=== PATIENT | male | born 1965 | race Caucasian/White ===

== ENCOUNTER → 2018-01-02 | Outpatient (CLI) | payer OTHER ==
[~2018-01-02] MED LIST: ACET-1256 PO; ALPH200C2; AMT10; ASCO100T4 PO; CLBCR15 EXT; DOXY1TAB6 PO; FLUO10CA48 PO; GABA-112 PO; IBUP-103 PO; LACTCHW3 PO; LORA-741 PO; MISC1CAP60 PO; SENN-61 PO
--- NOTE | 2018-01-02 22:37 | DIAGNOSTIC IMAGING REPORT ---
BONE SCAN 3 PHASE LIMITED CLINICAL HISTORY: 52 years-old Male presenting with CRPS LLE. TECHNIQUE: Following the IV administration of 26.5 mCi of technetium 99m MDP, three-phase bone scan of the feet was performed. Anterior flow images as well as anterior and posterior blood pool phase images were acquired. Bone phase imaging of lower extremities was performed at three hours in multiple obliquities. COMPARISON: None. FINDINGS: On initial flow imaging, relatively less radiotracer activity within the vasculature of the left foot. This is evident on both anterior and posterior views. On subsequent blood pool phase imaging, relatively less radiotracer within the left foot in comparison to the hindfoot and midfoot on the right. The relative hyperemia in the right foot is diffuse. On bone phase imaging, minimal focal radiotracer activity in the medial compartment of the left knee joint likely degenerative in etiology. Focal radiotracer activity in the inferior calcanei bilaterally. IMPRESSION: 1. Relatively less hyperemia in the left foot on flow imaging and blood pool phase would not be consistent with complex regional pain syndrome in the left lower extremity. 2. Focal radiotracer activity on delayed phase in the inferior calcanei may suggest plantar fasciitis. Correlate clinically. Electronically signed by: Ramesh Martinez M.D. 01/02/2018 10:36 PM Dictated Date/Time: 01/02/2018 10:07 PM
== END | disposition home or self-care (01) ==
LOC: C.NUCL 16:22
PROVIDERS: ATTEND Physician Assistant
DX: G90.522 Complex regional pain syndrome I of left lower limb (principal)

== ENCOUNTER 2021-07-24 09:12 | Inpatient (IN) ==
[2021-07-24] MEDS ORDERED: dexAMETHasone**PF** 10 MG/ML VIAL IV ONE (09:32)
[2021-07-24] MEDS ORDERED: ALBUT/IPRATROP 3MG/0.5MG NEB 3 ML VIAL INH STA (09:32)
[2021-07-24] MEDS ORDERED: SODIUM CHLORIDE 0.9% 1000ML 500 ML IV ONE (09:35)
--- NOTE | 2021-07-24 09:42 | Emergency Department Note ---
Impression & Plan Hypoxia, Pneumonia, COVID-19, SOB (shortness of breath) ED Provider Note NAME: JUSTEN JOHNS AGE: 55 SEX: M : 1965 ARRIVES VIA: Ambulance INFORMANT: [Patient] ED PROVIDER(S): [[facility] MD] CHIEF COMPLAINT: Short of breath HISTORY OF PRESENT ILLNESS: The patient is a 55-year-old male who presents to the ER with shortness of breath. He has been sick for about 10 days with flulike symptoms. He has had a fever, initially some diarrhea which has now subsided. He has had a cough. Lately, he has been more short of breath. His taste and smell is intact. He javan es any body aches. He has a home pulse ox meter and his values have been in the mid 80s. The patient did test positive for COVID-19 as an outpatient He is not vaccinated for COVID-19 or influenza. He was referred to the ER by his doctors office because of his low oxygen level. REVIEW OF SYSTEMS: See HPI for pertinent positives and negatives. A total of ten systems were reviewed and were otherwise negative. PMHx/PSHx: See Below SOCIAL HISTORY: See Below. PHYSICAL EXAM: GENERAL: Patient is in no acute distress. HEENT: No acute trauma, normocephalic atraumatic, mucous membranes moist, no nasal congestion, no scleral icterus. NECK: No stridor, no adenopathy, no meningismus, trachea is midline. LUNGS: Moist cough noted. Crackles at both lung bases. Mildly increased respiratory rate but no respiratory distress. HEART: Mildly tachycardic, regular rhythm, no murmurs. ABDOMEN: Soft, nontender, bowel sounds positive, no hernias, no peritonitis. EXTREMITIES: No cyanosis or edema, full range of motion of all the joints without pain or difficulty, no signs for acute trauma. 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 He is awake and alert, no speech slur. SKIN: No rash, no jaundice, no diaphoresis. DIFFERENTIAL DIAGNOSIS: Reactive airway disease, pneumonia, pneumothorax, COVID-19, influenza, COPD, CHF, infection, cardiac ischemia, pulmonary embolism, bronchitis, musculoskeletal, gastrointestinal, as well as other pathologies. EMERGENCY DEPARTMENT COURSE/PROCEDURES: ECG: Indication was shortness of breath. The ECG shows a normal sinus rhythm with a rate of 97. There is no ST elevation. No PVCs. There is an old inferior infarct. The QTc is 477. Continuous Cardiac Monitoring: An order was placed for continuous cardiac monitoring. The monitor shows a rate of 86 with normal sinus rhythm. Critical Care Note: I have personally spent 47 minutes of critical care time in the direct management of this patient. This includes bedside care, interpretation of diagnostic studies, and testing, discussion with consultants, patient, and family members, and other required patient management activities. This 47 minutes is in excess of all separately billable procedures. MEDICAL DECISION MAKING: There is no leukocytosis or concerning anemia. There is a normal platelet count. No coagulopathy. No significant electrolyte abnormality or kidney failure. No lactic acid elevation. No liver enzyme elevation. Procalcitonin level was not elevated. ECG shows a sinus rhythm, no acute ischemia. Cardiac enzyme testing x1 is not consistent with acute cardiac injury. Covid testing returned positive. Influenza and RSV testing returned negative. Chest film does show a bilateral pneumonia consistent with a viral process. On exam, the patient was hypoxic and required O2 supplementation. Patient received a 500 cc saline bolus. He was given IV Decadron and a DuoNeb. The patient has Covid pneumonia. This has led to shortness of breath and hypoxia. Admission/observation is warranted. I spoke with the patient and case management. The on-call hospitalist was consulted. Past Med/Surg History Medical History Acoustic neuroma Depression Social History Smoking Status: Former smoker Tobacco Type: Cigarettes Feels Safe at Home: Yes Allergies Allergies Allergy/AdvReac Type Severity Reaction Status Date / Time No Known Allergies Allergy Unverified 07/24/21 10:47 Home Meds Home Medications Medication Instructions Recorded Confirmed acetaminophen 325 mg tablet 500 mg PO PRN #0 tab 03/03/12 07/24/21 (Tylenol) ibuprofen 200 mg tablet 400 mg PO Q6H PRN #0 tab 03/08/12 07/24/21 ascorbic acid (vitamin C) 100 mg 100 mg PO DAILY #0 12/15/15 07/24/21 tablet lorazepam 1 mg tablet 0 mg PO TID PRN #0 tab 12/15/15 07/24/21 alpha lipoic acid 50 mg capsule 0 mg PO DAILY #0 12/23/17 07/24/21 CBD Oil 0 applic TOPICAL DAILY PRN #0 01/20/18 07/24/21 clonidine HCl 0.1 mg tablet 0.1 mg PO HS PRN 07/24/21 07/24/21 duloxetine 30 mg capsule,delayed 30 mg PO DAILY 07/24/21 07/24/21 release hydrochlorothiazide 12.5 mg capsule 12.5 mg PO DAILY 07/24/21 07/24/21 lisinopril 20 mg tablet 20 mg PO DAILY 07/24/21 07/24/21 pregabalin 200 mg capsule 200 mg PO BID 07/24/21 07/24/21 Results & Data (ED) Vital Signs Vital Signs - 24 hr 07/24/21 09:20 07/24/21 09:35 07/24/21 09:36 Temperature 37.3 C Temperature Source Oral Pulse Rate 100 H Pulse Rate [Right Finger] Respiratory Rate 24 Respiratory Effort / Characteristics Non-Labored Non-Labored Spontaneous Respiratory Depth Normal Normal Respiratory Pattern Regular Blood Pressure 148/90 H Blood Pressure [Left Arm] Blood Pressure Mean 109 Blood Pressure Mean [Left Arm] Pulse Oximetry 95 89 L Oxygen Delivery Method Nasal Cannula Nasal Cannula Nasal Cannula Oxygen Flow Rate 2 2 2 Sepsis Recent Fever Within 48 Hours No Sepsis New/Unexplained Change in Mental Status N/A Sepsis Action Taken by Nursing No Action Required Pulse Oximetry Post Tiitration 95 07/24/21 10:41 07/24/21 10:43 Temperature Temperature Source Pulse Rate Pulse Rate [Right Finger] 86 Respiratory Rate 24 24 Respiratory Effort / Characteristics Non-Labored Respiratory Depth Respiratory Pattern Blood Pressure Blood Pressure [Left Arm] 134/93 Blood Pressure Mean Blood Pressure Mean [Left Arm] 106 Pulse Oximetry 94 94 Oxygen Delivery Method Nasal Cannula Nasal Cannula Oxygen Flow Rate 2 2 Sepsis Recent Fever Within 48 Hours Sepsis New/Unexplained Change in Mental Status Sepsis Action Taken by Nursing Pulse Oximetry Post Tiitration Home Medications Current Medication List: was personally reviewed by me Laboratory Data Attestation: I reviewed the patient's lab results. Result diagrams: 07/24/21 09:32 07/24/21 09:32 Lab Results 07/24/21 07/24/21 07/24/21 Range/Units 09:32 09:32 09:32 WBC 9.16 (4.8-10.8) K/uL RBC 5.05 (4.7-6.1) M/uL Hgb 15.9 (14.0-18.0) g/dL Hct 47.2 (42-52) % MCV 93.5 (80-100) fL MCH 31.5 (25-34) pg MCHC 33.7 (32-36) g/dL RDW Std Deviation 45.1 (36.4-46.3) fL RDW Coeff of Hao 13.2 (11.5-14.5) % Plt Count 387 (130-400) K/uL MPV 10.3 (7.4-10.4) fL Immature Gran % (Auto) 0.2 % Neut % (Auto) 81.9 % Lymph % (Auto) 12.2 % [place] % (Auto) 5.0 % Eos % (Auto) 0.5 % Baso % (Auto) 0.2 % Neut # (Auto) 7.49 H (1.4-6.5) K/uL Lymph # (Auto) 1.12 L (1.2-3.4) K/uL [place] # (Auto) 0.46 (0.11-0.59) K/uL Eos # (Auto) 0.05 (0-0.5) K/uL Baso # (Auto) 0.02 (0-0.2) K/uL Immature Gran # (Auto) 0.02 (0.00-0.02) K/uL PT 10.1 (9.0-12.0) Seconds INR 1.0 (0.9-1.1) APTT 26.2 (21.0-31.0) Seconds PTT Ratio 1.0 Sodium 139 (136-145) mmol/L Potassium 3.9 (3.5-5.1) mmol/L Chloride 104 (98-107) mmol/L Carbon Dioxide 27 (21-32) mmol/L Anion Gap 8.0 (3-11) BUN 11 (7-18) mg/dl Creatinine 0.91 (0.6-1.4) mg/dl Est Cr Clr Drug Dosing 94.7 ml/min Est GFR ( Amer) 109.6 ml/min Est GFR (Non-Af Amer) 94.5 ml/min BUN/Creatinine Ratio 12.5 (10-20) Glucose 115 H (70-99) mg/dl Lactate (0.4-2.0) mmol/L Calcium 9.0 (8.5-10.1) mg/dl Magnesium 2.4 (1.8-2.4) mg/dl Total Bilirubin 0.6 (0.2-1) mg/dl AST 29 (15-37) U/L ALT 68 (12-78) U/L Alkaline Phosphatase 80 (45-117) U/L Troponin I < 0.015 (0-0.045) ng/ml C-Reactive Protein 6.28 H (0-0.29) mg/dl Total Protein 7.6 (6.4-8.2) gm/dl Albumin 3.0 L (3.4-5.0) gm/dl Globulin 4.6 H (2.5-4.0) gm/dl Albumin/Globulin Ratio 0.6 L (0.9-2) Procalcitonin SARS-CoV-2 (PCR) (Negative) Influenza Type A (PCR) (Neg) Influenza Type B (PCR) (Neg) RSV (RT-PCR) (Neg) 07/24/21 07/24/21 07/24/21 Range/Units 09:55 10:38 10:38 WBC (4.8-10.8) K/uL RBC (4.7-6.1) M/uL Hgb (14.0-18.0) g/dL Hct (42-52) % MCV (80-100) fL MCH (25-34) pg MCHC (32-36) g/dL RDW Std Deviation (36.4-46.3) fL RDW Coeff of Hao (11.5-14.5) % Plt Count (130-400) K/uL MPV (7.4-10.4) fL Immature Gran % (Auto) % Neut % (Auto) % Lymph % (Auto) % [place] % (Auto) % Eos % (Auto) % Baso % (Auto) % Neut # (Auto) (1.4-6.5) K/uL Lymph # (Auto) (1.2-3.4) K/uL [place] # (Auto) (0.11-0.59) K/uL Eos # (Auto) (0-0.5) K/uL Baso # (Auto) (0-0.2) K/uL Immature Gran # (Auto) (0.00-0.02) K/uL PT (9.0-12.0) Seconds INR (0.9-1.1) APTT (21.0-31.0) Seconds PTT Ratio Sodium (136-145) mmol/L Potassium (3.5-5.1) mmol/L Chloride (98-107) mmol/L Carbon Dioxide (21-32) mmol/L Anion Gap (3-11) BUN (7-18) mg/dl Creatinine (0.6-1.4) mg/dl Est Cr Clr Drug Dosing ml/min Est GFR ( Amer) ml/min Est GFR (Non-Af Amer) ml/min BUN/Creatinine Ratio (10-20) Glucose (70-99) mg/dl Lactate 1.3 (0.4-2.0) mmol/L Calcium (8.5-10.1) mg/dl Magnesium (1.8-2.4) mg/dl Total Bilirubin (0.2-1) mg/dl AST (15-37) U/L ALT (12-78) U/L Alkaline Phosphatase (45-117) U/L Troponin I (0-0.045) ng/ml C-Reactive Protein (0-0.29) mg/dl Total Protein (6.4-8.2) gm/dl Albumin (3.4-5.0) gm/dl Globulin (2.5-4.0) gm/dl Albumin/Globulin Ratio (0.9-2) Procalcitonin Cancelled SARS-CoV-2 (PCR) POSITIVE A* (Negative) Influenza Type A (PCR) Negative (Neg) Influenza Type B (PCR) Negative (Neg) RSV (RT-PCR) Negative (Neg) 07/24/21 Range/Units 11:43 WBC (4.8-10.8) K/uL RBC (4.7-6.1) M/uL Hgb (14.0-18.0) g/dL Hct (42-52) % MCV (80-100) fL MCH (25-34) pg MCHC (32-36) g/dL RDW Std Deviation (36.4-46.3) fL RDW Coeff of Hao (11.5-14.5) % Plt Count (130-400) K/uL MPV (7.4-10.4) fL Immature Gran % (Auto) % Neut % (Auto) % Lymph % (Auto) % [place] % (Auto) % Eos % (Auto) % Baso % (Auto) % Neut # (Auto) (1.4-6.5) K/uL Lymph # (Auto) (1.2-3.4) K/uL [place] # (Auto) (0.11-0.59) K/uL Eos # (Auto) (0-0.5) K/uL Baso # (Auto) (0-0.2) K/uL Immature Gran # (Auto) (0.00-0.02) K/uL PT (9.0-12.0) Seconds INR (0.9-1.1) APTT (21.0-31.0) Seconds PTT Ratio Sodium (136-145) mmol/L Potassium (3.5-5.1) mmol/L Chloride (98-107) mmol/L Carbon Dioxide (21-32) mmol/L Anion Gap (3-11) BUN (7-18) mg/dl Creatinine (0.6-1.4) mg/dl Est Cr Clr Drug Dosing ml/min Est GFR ( Amer) ml/min Est GFR (Non-Af Amer) ml/min BUN/Creatinine Ratio (10-20) Glucose (70-99) mg/dl Lactate (0.4-2.0) mmol/L Calcium (8.5-10.1) mg/dl Magnesium (1.8-2.4) mg/dl Total Bilirubin (0.2-1) mg/dl AST (15-37) U/L ALT (12-78) U/L Alkaline Phosphatase (45-117) U/L Troponin I (0-0.045) ng/ml C-Reactive Protein (0-0.29) mg/dl Total Protein (6.4-8.2) gm/dl Albumin (3.4-5.0) gm/dl Globulin (2.5-4.0) gm/dl Albumin/Globulin Ratio (0.9-2) Procalcitonin 0.08 SARS-CoV-2 (PCR) (Negative) Influenza Type A (PCR) (Neg) Influenza Type B (PCR) (Neg) RSV (RT-PCR) (Neg) Administered Medications Discontinued Medications Albuterol (Albut/Ipratrop 3mg/0.5mg Neb 3 Ml Vial) 3 ml INH NOW STA Stop: 07/24/21 09:33 Last Admin: 07/24/21 10:22 Dose: 3 ml Documented by: [id number] Dexamethasone Sodium Phosphate (DexamethasonePf 10 Mg/Ml Vial) 6 mg IV NOW ONE Stop: 07/24/21 09:33 Last Admin: 07/24/21 10:22 Dose: 6 mg Documented by: [id number] Sodium Chloride (Nss 1000ml) 500 mls @ 999 mls/hr IV .Q31M ONE Stop: 07/24/21 10:05 Last Infusion: 07/24/21 11:14 Dose: 0 mls/hr Documented by: [id number] Admin: 07/24/21 10:14 Dose: 999 mls/hr Documented by: [id number] Remdesivir 200 mg/ Sodium (Chloride) 250 mls @ 125 mls/hr IV ONE STA; Protocol Stop: 07/24/21 14:50 Last Admin: 07/24/21 13:34 Dose: 125 mls/hr Documented by: [id number] Imaging Data Radiologist's Impression: Chest X-Ray 07/24/21 09:32 XR chest 1V portable CLINICAL HISTORY: Shortness of breath. COMPARISON STUDY: No previous studies for comparison. FINDINGS: Lung volumes are normal. There is no pneumothorax or pleural effusion. Moderate multifocal bilateral airspace opacities are present. Borderline enlargement of the cardiac silhouette is present. Mediastinal contours are otherwise unremarkable. IMPRESSION: Moderate multifocal airspace opacities within the lungs which favor viral pneumonia. Radiographic follow-up to ensure resolution is recommended. ACT 112: Negative or not required by law. Electronically signed by: Jaime Meredith M.D. 07/24/2021 10:00 AM Discharge Plan Visit Data Chief Complaint: Shortness of Breath/Dyspnea Stated Complaint: SOB, ILLNESS, COVID + ED Provider: [facility] Discharge Problem: Hypoxia, Pneumonia, COVID-19, SOB (shortness of breath) Patient Disposition: Admitted As Inpatient Condition: Fair Forms Stand Alone Forms: [facility] Prescriptions Prescriptions: No Action acetaminophen [Tylenol] 325 mg Tablet 500 mg PO PRN Qty: 0 RF: 0 ibuprofen 200 mg Tablet 400 mg PO Q6H PRN (Reason: Pain) Qty: 0 RF: 0 ascorbic acid (vitamin C) 100 mg Tablet 100 mg PO DAILY Qty: 0 RF: 0 lorazepam 1 mg Tablet 0 mg PO TID PRN (Reason: Anxiety) Qty: 0 RF: 0 alpha lipoic acid 50 mg Capsule 0 mg PO DAILY Qty: 0 RF: 0 CBD Oil 0 applic topical DAILY PRN (Reason: Pain) Qty: 0 RF: 0 clonidine HCl 0.1 mg tablet 0.1 mg PO HS PRN (Reason: Sleep) RF: 0 lisinopril 20 mg tablet 20 mg PO DAILY RF: 0 hydrochlorothiazide 12.5 mg capsule 12.5 mg PO DAILY RF: 0 pregabalin 200 mg capsule 200 mg PO BID RF: 0 duloxetine 30 mg capsule,delayed release(DR/EC) 30 mg PO DAILY RF: 0 Referrals Referrals: Bonnie Hernandez MD [Primary Care Provider] -
--- NOTE | 2021-07-24 10:01 | XRay Report ---
XR chest 1V portable CLINICAL HISTORY: Shortness of breath. COMPARISON STUDY: No previous studies for comparison. FINDINGS: Lung volumes are normal. There is no pneumothorax or pleural effusion. Moderate multifocal bilateral airspace opacities are present. Borderline enlargement of the cardiac silhouette is present . Mediastinal contours are otherwise unremarkable. IMPRESSION: Moderate multifocal airspace opacities within the lungs which favor viral pneumonia. Rad iographic follow-up to ensure resolution is recommended. ACT 112: Negative or not required by law. Electronically signed by: Jaime Meredith M.D. 07/24/2021 10:00 AM
[2021-07-24 10:18] LABS: Basophils # (auto) 0.02 K/uL (0-0.2); Basophils % (auto) 0.2 %; Eosinophils # (auto) 0.05 K/uL (0-0.5); Eosinophils % (auto) 0.5 %; Hematocrit (blood only) 47.2 % (42-52); Hemoglobin 15.9 g/dL (14.0-18.0); Immature Granulocytes # (auto) 0.02 K/uL (0.00-0.02); Immature Granulocytes % (auto) 0.2 %; Lymphocytes # (auto) 1.12 K/uL (1.2-3.4); Lymphocytes % (auto) 12.2 %; Mean Corpuscular Hemoglobin 31.5 pg (25-34); Mean Corpuscular Hgb Conc 33.7 g/dL (32-36); Mean Corpuscular Volume 93.5 fL (80-100); Mean Platelet Volume 10.3 fL (7.4-10.4); Monocytes # (auto) 0.46 K/uL (0.11-0.59); Neutrophils # (auto) 7.49 K/uL (1.4-6.5); Neutrophils % (auto) 81.9 %; Platelet Count 387 K/uL (130-400); RDW Coefficient of Variation 13.2 % (11.5-14.5); RDW Standard Deviation 45.1 fL (36.4-46.3); Red Blood Count 5.05 M/uL (4.7-6.1); White Blood Count 9.16 K/uL (4.8-10.8)
[2021-07-24 10:29] LABS: Partial Thromboplastin Time 26.2 Seconds (21.0-31.0); Prothrombin Time 10.1 Seconds (9.0-12.0)
[2021-07-24 10:38] LABS: Alanine Aminotransferase 68 U/L (12-78); Aspartate Aminotransferase 29 U/L (15-37); BUN Creatinine Ratio 12.5 (10-20); Blood Urea Nitrogen 11 mg/dl (7-18); C Reactive Protein 6.28 mg/dl (0-0.29); Carbon Dioxide 27 mmol/L (21-32); Chloride 104 mmol/L (98-107); Creatinine Clr Calc Pharmacy 94.7 ml/min; Est GFR (African American) 109.6 ml/min; Est GFR (Non-African American) 94.5 ml/min; Glucose 115 mg/dl (70-99); Magnesium 2.4 mg/dl (1.8-2.4); Potassium 3.9 mmol/L (3.5-5.1); Sodium 139 mmol/L (136-145)
[2021-07-24 10:42] LABS: Influenza A virus by PCR Negative (Neg); Influenza B virus by PCR Negative (Neg); RSV by PCR Negative (Neg)
[2021-07-24 10:42] LABS: Albumin Globulin Ratio 0.6 (0.9-2); Alkaline Phosphatase 80 U/L (45-117); Bilirubin,Total 0.6 mg/dl (0.2-1); Globulin 4.6 gm/dl (2.5-4.0); Total Protein 7.6 gm/dl (6.4-8.2); Troponin I < 0.015 ng/ml (0-0.045)
[2021-07-24] MEDS ORDERED: REMDESIVIR 200 MG in SODIUM CHLORIDE 0.9% 210 ML IV STA (12:51)
--- NOTE | 2021-07-24 14:02 | History and Physical Report ---
DATE OF ADMISSION: 07/24/2021 CHIEF COMPLAINT: Shortness of breath. HISTORY OF PRESENT ILLNESS: This is a 55-year-old male with past medical history significant for hypertension, constipation, acoustic neuroma, chronic lacrimal canaliculitis of right lacrimal passage, reflex sympathetic dystrophy, mild depression, history of nonmelanoma skin cancer, presents with shortness of breath and cough. 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 He was staying at home quarantining, but initially on time, he had mild diarrhea that got resolved. Currently, he is having cough and when he blew up the nose, which was somewhat bloody and yellowish color. Denies any sore throat. Appetite is very poor. Main symptom is very fatigued and difficulty ambulating, poor appetite. Denies any chest pain and today was getting more short of breath and advised to come to the hospital. Currently, requiring 2 liters of oxygen, resting comfortably and hemodynamically stable. He was 89% on room air. Denies any blurred vision or double visions. No sore throat. He was feeling nauseous, but no vomiting. Normal bladder movements. No swelling in the legs, no rash. ALLERGIES: No known drug allergies. PAST MEDICAL HISTORY: As mentioned above. PAST SURGICAL HISTORY: Colonoscopy, head surgery for excision of the recurrent acoustic neuroma, excision of sebaceous cyst in the left mid back, Mohs surgery stage II on the left shoulder, repair of incarcerated umbilical hernia. MEDICATIONS: The patient is on Tylenol 500 mg p.o. p.r.n., ascorbic acid 1000 mg p.o. daily, CBD oil topical daily p.r.n., clonidine 0.1 mg p.o. at bedtime p.r.n. for insomnia, hydrochlorothiazide 12.5 mg p.o. daily, ibuprofen 400 mg p.o. q.6 hours p.r.n., lisinopril 20 mg p.o. daily, Ativan 0.5 mg p.o. b.i.d. p.r.n., pregabalin 200 mg p.o. b.i.d., duloxetine 30 mg p.o. daily. FAMILY HISTORY: Significant for mother had breast cancer. SOCIAL HISTORY: Single, former smoker, quit in 2008, smoked half pack a day for 5 years. Alcohol, 3 beers per night. No drug use. REVIEW OF SYSTEMS: As per HPI. Rest of the review of systems is negative. PHYSICAL EXAMINATION: GENERAL: The patient is of moderate build, not in acute distress. VITAL SIGNS: Temperature 37.3, pulse 86, respiratory rate 24, blood pressure 134/93, oxygen 94% on 2 liters. HEENT: Pupils equal, round and reactive to light. Mouth is somewhat deviated to the left side. NECK: No JVD, no neck masses. CARDIOVASCULAR: S1 and S2 heard. Regular rate and rhythm. No murmur, no gallop. RESPIRATORY: Normal AP diameter. No accessory muscle use. No wheezing, no crackles. ABDOMEN: Soft, bowel sounds present, nontender, no distention. CENTRAL NERVOUS SYSTEM: Alert, awake, and oriented. Speech is clear. Moves extremities. EXTREMITIES: No edema, no erythema. LABORATORY DATA: WBC is 9.1, hemoglobin 15.9, hematocrit 47.2, platelets 387. PT 10.1, INR 1, APTT 26.2. Sodium 139, potassium 3.9, chloride 104, bicarb 27, BUN 11, creatinine 0.9, serum glucose 115, lactate 1.3, calcium 9, magnesium 2.4, total bilirubin 0.6, AST 29, ALT 68, alkaline phosphatase 80. Troponin I less than 0.015. C-reactive protein 6.2. Procalcitonin 0.08. SARS-CoV-2 PCR positive. Influenza A and B negative. RSV negative. Chest x-ray: Moderate multifocal airspace opacity within the lungs, which favors a viral pneumonia. EKG: Normal sinus rhythm at a rate of 97, no previous EKG is available. ASSESSMENT AND PLAN: This 55-year-old male presents with COVID pneumonia. 1. COVID pneumonia: Symptoms started around 07/13. Currently requiring oxygen. Started on steroids. Around 10days of symptoms but will start on remdesivir, and monitor for remdesivir laboratories and monitor the response. Inhalers p.r.n. Monitor him in the remote med-telemetry. Supportive care. 2. Hypertension: Continue his home medications of lisinopril and hydrochlorothiazide. We will monitor the blood pressure. 3. History of depression: On duloxetine. 4. History of acoustic neuroma, status post surgery: Follow up. 5. History of reflex sympathetic dystrophy. 6. Deep venous thrombosis prophylaxis: Lovenox. DISPOSITION: Closely monitor in the med-tele. PT/OT prior to discharge. Social service to help with discharge planning. Job ID: [id number] [facility]
[2021-07-24] MEDS ORDERED: ONDANSETRON INJ 2 MG/ML 2 ML VIAL IV PRN (17:05)
[2021-07-24] MEDS ORDERED: NITROGLYCERIN SL 0.4 MG/TAB TAB SL PRN (17:05)
[2021-07-24] MEDS ORDERED: cloNIDine HCL 0.1 MG TAB PO PRN (17:05)
[2021-07-24] MEDS ORDERED: ALBUTEROL HFA 8 GM INHALER INH PRN (17:05)
[2021-07-24] MEDS ORDERED: ACETAMINOPHEN 325 MG TAB PO PRN (17:05)
[2021-07-24] MEDS ORDERED: D5W AND NSS 1,000 ML IV SCH (17:05)
[2021-07-24] MEDS ORDERED: LORazepam 1 MG TAB PO PRN (17:58)
[2021-07-24 18:03] LABS: BUN Creatinine Ratio 11.5 (10-20); Calcium 8.9 mg/dl (8.5-10.1); Est GFR (African American) 112.6 ml/min; Est GFR (Non-African American) 97.2 ml/min
[2021-07-24] MEDS: ENOXAPARIN INJ 40 MG/0.4 ML SYR SQ SCH (21:51)
[2021-07-24] MEDS: PREGABALIN 100 MG CAP PO SCH (22:16)
[2021-07-25 05:52] LABS: Basophils # (auto) 0.05 K/uL (0-0.2); Basophils % (auto) 0.8 %; Eosinophils # (auto) 0.05 K/uL (0-0.5); Eosinophils % (auto) 0.8 %; Hematocrit (blood only) 44.9 % (42-52); Hemoglobin 14.4 g/dL (14.0-18.0); Immature Granulocytes # (auto) 0.03 K/uL (0.00-0.02); Immature Granulocytes % (auto) 0.5 %; Lymphocytes # (auto) 1.41 K/uL (1.2-3.4); Lymphocytes % (auto) 21.2 %; Mean Corpuscular Hemoglobin 30.7 pg (25-34); Mean Corpuscular Hgb Conc 32.1 g/dL (32-36); Mean Corpuscular Volume 95.7 fL (80-100); Mean Platelet Volume 10.4 fL (7.4-10.4); Monocytes # (auto) 0.57 K/uL (0.11-0.59); Monocytes % (auto) 8.6 %; Neutrophils # (auto) 4.53 K/uL (1.4-6.5); Neutrophils % (auto) 68.1 %; Platelet Count 340 K/uL (130-400); RDW Coefficient of Variation 13.4 % (11.5-14.5); RDW Standard Deviation 47.3 fL (36.4-46.3); Red Blood Count 4.69 M/uL (4.7-6.1); White Blood Count 6.64 K/uL (4.8-10.8)
[2021-07-25 06:15] LABS: Albumin Level 2.5 gm/dl (3.4-5.0); Bilirubin Direct 0.1 mg/dl (0-0.2); Bilirubin,Total 0.4 mg/dl (0.2-1); Magnesium 2.5 mg/dl (1.8-2.4); Total Protein 6.7 gm/dl (6.4-8.2)
[2021-07-25] MEDS: lisinopril 20 MG TAB PO SCH (08:34)
[2021-07-25] MEDS: dexAMETHasone 6 MG in SYRINGE 0 ML IV SCH (08:34)
[2021-07-25] MEDS: ASCORBIC ACID 500 MG TAB PO SCH (08:35)
[2021-07-25] MEDS: hydroCHLOROthiazide 25 MG TAB PO SCH (08:35)
[2021-07-25] MEDS: FLUTICASONE FUROATE 200MCG 14 PUFFS/INHALER INH SCH (08:35)
[2021-07-25] MEDS: PREGABALIN 100 MG CAP PO SCH ×2 (08:40→21:29)
[2021-07-25] MEDS: REMDESIVIR 100 MG in SODIUM CHLORIDE 0.9% 230 ML IV SCH (11:55)
--- NOTE | 2021-07-25 12:04 | Electrocardiogram Report ---
Test Reason : Blood Pressure : / mmHG Vent. Rate : 097 BPM Atrial Rate : 097 BPM P-R Int : 158 ms QRS Dur : 088 ms QT Int : 376 ms P-R-T Axes : 043 013 -11 degrees QTc Int : 477 ms Normal sinus rhythm Inferior infarct , age undetermined Poor R wave progression, consider anterior DC vs. lead placement vs. LVH Abnormal ECG No previous ECGs available Confirmed by Keaton Adams ([id number]) on 07/25/2021 12:04:15 PM Referred By: REFERRED SELF Confirmed By:Keaton Adams
--- NOTE | 2021-07-25 12:20 | Hospitalist Progress Note ---
Date of Service July 25, 2021 Assessment & Plan (1) Pneumonia due to COVID-19 virus: Plan: Continue remdesivir and dexamethasone, oxygen supplementation as needed. (2) Hypoxia: Plan: Secondary to pneumonia, continue as above. (3) Depression: Plan: Continue duloxetine per home regimen. Notably outpatient record mentions Ativan , however, do not see this listed on PDMP. Okay to prescribe if patient is requesting but currently this is not the case. (4) Hypertension: Plan: Chronic, controlled. Continue lisinopril and HCTZ per outpatient regimen. (5) Reflex sympathetic dystrophy: Plan: Continue pregabalin per outpatient regimen. (6) DVT prophylaxis: Plan: Lovenox Full code Disposition-to home when off oxygen and feeling better. We discussed that would be fine if he went home on minimal oxygen support that he is currently requiring. Aisha Martin DO [facility] Hospitalist Admission and Anticipated Discharge Date Admission Date: July 24, 2021 Subjective 55-year-old man admitted for Covid pneumonia weakness and fatigue-profound hypoxia noted at home denies headache, chest pain, no diarrhea. no abdominal pain, no neck stiffness some trouble with the light +cough, denies any neck stiffness Review of Systems Review of Systems: All systems reviewed and negative except as indicated in subjective above Physical Exam Physical Exam: CONSTITUTIONAL: WNWD, vitals as above, generally well-appearing, NAD EYES: normal conjunctivae, no scleral icterus ENT: external ear and nose normal, right facial paralysis that is chronic, MMM NECK: trachea midline RESPIRATORY: clear to auscultation bilaterally, no crackles, rales or wheezes, normal respiratory effort CARDIOVASCULAR: regular rate and rhythm, S1 and 2 heard without murmurs, gallops or rubs, no JVD, no peripheral edema GASTROINTESTINAL: soft, nontender, ND, no guarding MUSCULOSKELETAL: strength 5/5 throughout, head is normocephalic and atraumatic SKIN: warm and dry NEUROLOGIC: CN 2-12 grossly intact, normal cognition, normal speech, no tremor, no gross focal deficits. PSYCHIATRIC: alert cooperative and oriented to person, place and time. Results & Data Results & Data ([facility]) Vital Signs (Past 12 Hours) Vital Signs Pulse Resp BP Pulse Ox 07/25/21 03:19 73 18 138/84 96 Laboratory Results Short CBC 07/25/21 Range/Units 05:38 WBC 6.64 (4.8-10.8) K/uL Hgb 14.4 (14.0-18.0) g/dL Hct 44.9 (42-52) % Plt Count 340 (130-400) K/uL BMP 07/24/21 17:13 Sodium 140 Potassium Chloride 107 Carbon Dioxide 27 BUN 10 Creatinine 0.87 Glucose 141 H Calcium 8.9 Liver Function 07/25/21 Range/Units 05:38 Total Bilirubin 0.4 (0.2-1) mg/dl Direct Bilirubin 0.1 (0-0.2) mg/dl AST 33 (15-37) U/L ALT 66 (12-78) Alkaline Phosphatase 71 (45-117) U/L Albumin 2.5 L (3.4-5.0) gm/dl Medications Administered Current Inpatient Medications Acetaminophen (Acetaminophen 325 Mg Tab) 650 mg PO Q4H PRN PRN Reason: Pain or Fever Stop: 08/23/21 17:04 Albuterol (Albuterol Hfa 8 Gm Inhaler) 2 puffs INH Q4H PRN; Protocol PRN Reason: Shortness Of Breath Or Wheezing Stop: 08/23/21 17:04 Ascorbic Acid (Ascorbic Acid 500 Mg Tab) 500 mg PO DAILY [facility] Stop: 08/24/21 08:59 Last Admin: 07/25/21 08:35 Dose: 500 mg Documented by: Clonidine HCl (Clonidine Hcl 0.1 Mg Tab) 0.1 mg PO HS PRN PRN Reason: Sleep Stop: 08/23/21 17:04 Enoxaparin Sodium (Enoxaparin Inj 40 Mg/0.4 Ml Syr) 40 mg SQ Q24H [facility] Stop: 08/23/21 20:59 Last Admin: 07/24/21 21:51 Dose: 40 mg Documented by: Fluticasone Furoate (Fluticasone Furoate 200mcg 14 Puffs/Inhaler) 1 puffs INH DAILY [facility] Stop: 08/24/21 08:59 Last Admin: 07/25/21 08:35 Dose: 1 puffs Documented by: Hydrochlorothiazide (Hydrochlorothiazide 25 Mg Tab) 12.5 mg PO DAILY [facility] Stop: 08/24/21 08:59 Last Admin: 07/25/21 08:35 Dose: 12.5 mg Documented by: Remdesivir 100 mg/ Sodium (Chloride) 250 mls @ 250 mls/hr IV Q24H [facility]; Protocol Stop: 07/28/21 12:59 Last Admin: 07/25/21 11:55 Dose: 250 mls/hr Documented by: Dexamethasone 6 mg/ Syringe 1.5 mls @ 1 mls/min IV DAILY [facility] Stop: 08/04/21 08:59 Last Admin: 07/25/21 08:34 Dose: 1 mls/min Documented by: Lisinopril (Lisinopril 20 Mg Tab) 20 mg PO DAILY [facility] Stop: 08/24/21 08:59 Last Admin: 07/25/21 08:34 Dose: 20 mg Documented by: Lorazepam (Lorazepam 1 Mg Tab) 1 mg PO TID PRN PRN Reason: Anxiety Stop: 08/23/21 17:57 Nitroglycerin (Nitroglycerin Sl 0.4 Mg/Tab Tab) 0.4 mg SL UD PRN PRN Reason: Chest Pain Stop: 08/23/21 17:04 Ondansetron HCl (Ondansetron Inj 2 Mg/Ml 2 Ml Vial) 4 mg IV Q6H PRN PRN Reason: Nausea Stop: 08/23/21 17:04 Pregabalin (Pregabalin 100 Mg Cap) 200 mg PO BID [facility] Stop: 08/23/21 20:59 Last Admin: 07/25/21 08:40 Dose: 200 mg Documented by: Sodium Chloride (Sodium Chloride 0.9% 10ml Flush) 30 ml IV Q24H [facility] Stop: 07/28/21 12:01
[2021-07-25] MEDS: SODIUM CHLORIDE 0.9% 10ML FLUSH IV SCH (13:02)
[2021-07-25] MEDS: ENOXAPARIN INJ 40 MG/0.4 ML SYR SQ SCH (21:28)
[2021-07-25] MEDS: guaiFENesin 600 MG TABCR PO SCH (23:24)
[2021-07-26] MEDS: ASCORBIC ACID 500 MG TAB PO SCH (08:49)
[2021-07-26] MEDS: FLUTICASONE FUROATE 200MCG 14 PUFFS/INHALER INH SCH (09:00)
[2021-07-26] MEDS: dexAMETHasone 6 MG in SYRINGE 0 ML IV SCH (09:01)
[2021-07-26] MEDS: lisinopril 20 MG TAB PO SCH (09:02)
[2021-07-26] MEDS: hydroCHLOROthiazide 25 MG TAB PO SCH (09:02)
[2021-07-26] MEDS: guaiFENesin 600 MG TABCR PO SCH ×2 (09:02→22:35)
[2021-07-26] MEDS: PREGABALIN 100 MG CAP PO SCH ×2 (09:12→22:34)
[2021-07-26 10:59] LABS: Hematocrit (blood only) 46.6 % (42-52); Hemoglobin 15.4 g/dL (14.0-18.0); Mean Corpuscular Hemoglobin 31.6 pg (25-34); Mean Corpuscular Volume 95.5 fL (80-100); Mean Platelet Volume 10.4 fL (7.4-10.4); Platelet Count 537 K/uL (130-400); RDW Coefficient of Variation 13.4 % (11.5-14.5); RDW Standard Deviation 46.6 fL (36.4-46.3); Red Blood Count 4.88 M/uL (4.7-6.1); White Blood Count 8.46 K/uL (4.8-10.8)
[2021-07-26 11:24] LABS: BUN Creatinine Ratio 17.8 (10-20); Calcium 9.8 mg/dl (8.5-10.1); Creatinine Clr Calc Pharmacy 82.1 ml/min; Est GFR (African American) 92.2 ml/min; Est GFR (Non-African American) 79.5 ml/min; Potassium 3.8 mmol/L (3.5-5.1)
[2021-07-26 11:25] LABS: C Reactive Protein 2.4 mg/dl (0-0.29)
[2021-07-26] MEDS: REMDESIVIR 100 MG in SODIUM CHLORIDE 0.9% 230 ML IV SCH (13:06)
[2021-07-26] MEDS: SODIUM CHLORIDE 0.9% 10ML FLUSH IV SCH (14:18)
--- NOTE | 2021-07-26 22:11 | Hospitalist Progress Note ---
Date of Service July 26, 2021 Assessment & Plan (1) Pneumonia due to COVID-19 virus: Plan: Continue remdesivir and dexamethasone, oxygen supplementation as needed. Discussed that MAB therapy is under [facility] only and that he is on oxygen and admitted to the hospital, two exclusion criteria. (2) Hypoxia: Plan: Secondary to pneumonia, continue as above. (3) Depression: Plan: Continue duloxetine per home regimen. Notably outpatient record mentions Ativan, however, do not see this listed on PDMP. Okay to prescribe if patient i s requesting but currently this is not the case. (4) Hypertension: Plan: Chronic, controlled. Continue lisinopril and HCTZ per outpatient regimen. (5) Reflex sympathetic dystrophy: Plan: Continue pregabalin per outpatient regimen. (6) DVT prophylaxis: Plan: Lovenox Full code Disposition-to home when off oxygen and feeling better. We discussed that would be fine if he went home on minimal oxygen support that he is currently requiring. Aisha Martin DO [facility] Hospitalist Admission and Anticipated Discharge Date Admission Date: July 24, 2021 Subjective 55-year-old man admitted for Covid pneumonia weakness and fatigue-improved denies headache, chest pain, no diarrhea. 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 Review of Systems Review of Systems: All systems reviewed and negative except as indicated in subjective above Physical Exam Physical Exam: CONSTITUTIONAL: WNWD, vitals as above, generally well- appearing, NAD EYES: normal conjunctivae, no scleral icterus ENT: external ear and nose normal, right facial paralysis that is chronic, MMM NECK: trachea midline RESPIRATORY: clear to auscultation bilaterally, no crackles, rales or wheezes, normal respiratory effort CARDIOVASCULAR: regular rate and rhythm, S1 and 2 heard without murmurs, gallops or rubs, no JVD, no peripheral edema GASTROINTESTINAL: soft, nontender, ND, no guarding MUSCULOSKELETAL: strength 5/5 throughout, head is normocephalic and atraumatic SKIN: warm and dry NEUROLOGIC: CN 2-12 grossly intact, normal cognition, normal speech, no tremor, no gross focal deficits. PSYCHIATRIC: alert cooperative and oriented to person, place and time. Results & Data Results & Data ([facility]) Vital Signs (Past 12 Hours) Vital Signs Temp Pulse Resp BP Pulse Ox 07/26/21 14:21 36.8 C 91 H 18 135/83 95 Laboratory Results Short CBC 07/26/21 Range/Units 10:18 WBC 8.46 (4.8-10.8) K/uL Hgb 15.4 (14.0-18.0) g/dL Hct 46.6 (42-52) % Plt Count 537 H D (130-400) K/uL BMP 07/26/21 10:18 Sodium 139 Potassium 3.8 Chloride 105 Carbon Dioxide 24 BUN 19 H D Creatinine 1.05 Glucose 142 H Calcium 9.8 Liver Function 07/26/21 Range/Units 10:18 AST 42 H (15-37) U/L ALT 92 H (12-78) Medications Administered Current Inpatient Medications Acetaminophen (Acetaminophen 325 Mg Tab) 650 mg PO Q4H PRN PRN Reason: Pain or Fever Stop: 08/23/21 17:04 Albuterol (Albuterol Hfa 8 Gm Inhaler) 2 puffs INH Q4H PRN; Protocol PRN Reason: Shortness Of Breath Or Wheezing Stop: 08/23/21 17:04 Ascorbic Acid (Ascorbic Acid 500 Mg Tab) 500 mg PO DAILY [facility] Stop: 08/24/21 08:59 Last Admin: 07/26/21 08:49 Dose: Not Given Documented by: Clonidine HCl (Clonidine Hcl 0.1 Mg Tab) 0.1 mg PO HS PRN PRN Reason: Sleep Stop: 08/23/21 17:04 Enoxaparin Sodium (Enoxaparin Inj 40 Mg/0.4 Ml Syr) 40 mg SQ Q24H [facility] Stop: 08/23/21 20:59 Last Admin: 07/25/21 21:28 Dose: 40 mg Documented by: Fluticasone Furoate (Fluticasone Furoate 200mcg 14 Puffs/Inhaler) 1 puffs INH DAILY [facility] Stop: 08/24/21 08:59 Last Admin: 07/26/21 09:00 Dose: 1 puffs Documented by: Guaifenesin (Guaifenesin 600 Mg Tabcr) 600 mg PO Q12 [facility] Stop: 08/24/21 20:59 Last Admin: 07/26/21 09:02 Dose: 600 mg Documented by: Hydrochlorothiazide (Hydrochlorothiazide 25 Mg Tab) 12.5 mg PO DAILY [facility] Stop: 08/24/21 08:59 Last Admin: 07/26/21 09:02 Dose: 12.5 mg Documented by: Remdesivir 100 mg/ Sodium (Chloride) 250 mls @ 250 mls/hr IV Q24H [facility]; Protocol Stop: 07/28/21 12:59 Last Infusion: 07/26/21 14:22 Dose: Infused Documented by: Dexamethasone 6 mg/ Syringe 1.5 mls @ 1 mls/min IV DAILY [facility] Stop: 08/04/21 08:59 Last Admin: 07/26/21 09:01 Dose: 1 mls/min Documented by: Lisinopril (Lisinopril 20 Mg Tab) 20 mg PO DAILY [facility] Stop: 08/24/21 08:59 Last Admin: 07/26/21 09:02 Dose: 20 mg Documented by: Lorazepam (Lorazepam 1 Mg Tab) 1 mg PO TID PRN PRN Reason: Anxiety Stop: 08/23/21 17:57 Nitroglycerin (Nitroglycerin Sl 0.4 Mg/Tab Tab) 0.4 mg SL UD PRN PRN Reason: Chest Pain Stop: 08/23/21 17:04 Ondansetron HCl (Ondansetron Inj 2 Mg/Ml 2 Ml Vial) 4 mg IV Q6H PRN PRN Reason: Nausea Stop: 08/23/21 17:04 Pregabalin (Pregabalin 100 Mg Cap) 200 mg PO BID [facility] Stop: 08/23/21 20:59 Last Admin: 07/26/21 09:12 Dose: 200 mg Documented by: Sodium Chloride (Sodium Chloride 0.9% 10ml Flush) 30 ml IV Q24H [facility] Stop: 07/28/21 12:01 Last Admin: 07/26/21 14:18 Dose: 30 ml Documented by:
[2021-07-26] MEDS: ENOXAPARIN INJ 40 MG/0.4 ML SYR SQ SCH (22:32)
[2021-07-27 08:55] LABS: Hematocrit (blood only) 48.8 % (42-52); Hemoglobin 16.3 g/dL (14.0-18.0); Mean Corpuscular Hemoglobin 31.8 pg (25-34); Mean Corpuscular Hgb Conc 33.4 g/dL (32-36); Mean Corpuscular Volume 95.3 fL (80-100); Mean Platelet Volume 10.7 fL (7.4-10.4); Platelet Count 542 K/uL (130-400); RDW Coefficient of Variation 13.2 % (11.5-14.5); RDW Standard Deviation 46.1 fL (36.4-46.3); Red Blood Count 5.12 M/uL (4.7-6.1); White Blood Count 11.11 K/uL (4.8-10.8)
[2021-07-27 09:24] LABS: C Reactive Protein 1.31 mg/dl (0-0.29); Calcium 9.2 mg/dl (8.5-10.1); Creatinine Clr Calc Pharmacy 87.7 ml/min; Est GFR (African American) 101.4 ml/min; Est GFR (Non-African American) 87.5 ml/min
[2021-07-27] MEDS: dexAMETHasone 6 MG in SYRINGE 0 ML IV SCH (10:09)
[2021-07-27] MEDS: PREGABALIN 100 MG CAP PO SCH ×2 (10:09→21:44)
[2021-07-27] MEDS: ASCORBIC ACID 500 MG TAB PO SCH (10:10)
[2021-07-27] MEDS: guaiFENesin 600 MG TABCR PO SCH ×2 (10:10→21:44)
[2021-07-27] MEDS: FLUTICASONE FUROATE 200MCG 14 PUFFS/INHALER INH SCH (10:10)
[2021-07-27] MEDS: lisinopril 20 MG TAB PO SCH (10:10)
[2021-07-27] MEDS: hydroCHLOROthiazide 25 MG TAB PO SCH (10:10)
[2021-07-27 10:19] LABS: Potassium 3.8 mmol/L (3.5-5.1)
[2021-07-27] MEDS: SODIUM CHLORIDE 0.9% 10ML FLUSH IV SCH (13:09)
[2021-07-27] MEDS: REMDESIVIR 100 MG in SODIUM CHLORIDE 0.9% 230 ML IV SCH (13:09)
--- NOTE | 2021-07-27 13:41 | Hospitalist Progress Note ---
Date of Service July 27, 2021 Assessment & Plan (1) Pneumonia due to COVID-19 virus: Plan: Continue remdesivir and dexamethasone, oxygen supplementation is now off. Plan for two-step in a.m. and discharged home tomorrow. (2) Hypoxia: Plan: Secondary to pneumonia, resolved (3) Depression: Plan: Continue duloxetine per home regimen. Notably outpatient record mentions Ativan, however, do not see this listed on PDMP. Okay to prescribe if patient is requesting but currently this is not the case. (4) Hypertension: Plan: Chronic, controlled. Continue lisinopril and HCTZ per outpatient regimen. (5) Reflex sympathetic dystrophy: Plan: Continue pregabalin per outpatient regimen. Patient is requesting PT and OT evaluations prior to discharge home as he feels he is not walking well. These were ordered. (6) DVT prophylaxis: Plan: Lovenox Full code Disposition-to home when off oxygen and feeling better. Aisha Martin DO [facility] Hospitalist Admission and Anticipated Discharge Date Admission Date: July 24, 2021 Subjective 55-year-old man admitted for Covid pneumonia weakness and fatigue-improved denies headache, chest pain, no diarrhea. Now off oxygen Review of Systems Review of Systems: All systems reviewed and negative except as indicated in subjective above Physical Exam Physical Exam: CONSTITUTIONAL: WNWD, vitals as above, generally well- appearing, NAD EYES: normal conjunctivae, no scleral icterus ENT: external ear and nose normal, right facial paralysis that is chronic, MMM NECK: trachea midline RESPIRATORY: clear to auscultation bilaterally, no crackles, rales or wheezes, normal respiratory effort CARDIOVASCULAR: regular rate and rhythm, S1 and 2 heard without murmurs, gallops or rubs, no JVD, no peripheral edema GASTROINTESTINAL: soft, nontender, ND, no guarding MUSCULOSKELETAL: strength 5/5 throughout, head is normocephalic and atraumatic SKIN: warm and dry NEUROLOGIC: CN 2-12 grossly intact, normal cognition, normal speech, no tremor, no gross focal deficits. PSYCHIATRIC: alert cooperative and oriented to person, place and time. Results & Data Results & Data ([facility]) Vital Signs (Past 12 Hours) Vital Signs Temp Pulse Resp BP Pulse Ox 07/27/21 13:40 89 L 07/27/21 06:42 36.8 C 68 16 128/82 97 Laboratory Results Short CBC 07/27/21 Range/Units 08:15 WBC 11.11 H (4.8-10.8) K/uL Hgb 16.3 (14.0-18.0) g/dL Hct 48.8 (42-52) % Plt Count 542 H (130-400) K/uL BMP 07/27/21 07/27/21 08:15 09:41 Sodium 138 Potassium 3.8 Chloride 106 Carbon Dioxide 23 BUN 19 H Creatinine 0.97 Glucose 99 Calcium 9.2 Liver Function 07/27/21 07/27/21 Range/Units 08:15 09:41 AST 53 H (15-37) U/L ALT 124 H (12-78) Medications Administered Current Inpatient Medications Acetaminophen (Acetaminophen 325 Mg Tab) 650 mg PO Q4H PRN PRN Reason: Pain or Fever Stop: 08/23/21 17:04 Albuterol (Albuterol Hfa 8 Gm Inhaler) 2 puffs INH Q4H PRN; Protocol PRN Reason: Shortness Of Breath Or Wheezing Stop: 08/23/21 17:04 Ascorbic Acid (Ascorbic Acid 500 Mg Tab) 500 mg PO DAILY [facility] Stop: 08/24/21 08:59 Last Admin: 07/27/21 10:10 Dose: 500 mg Documented by: Clonidine HCl (Clonidine Hcl 0.1 Mg Tab) 0.1 mg PO HS PRN PRN Reason: Sleep Stop: 08/23/21 17:04 Enoxaparin Sodium (Enoxaparin Inj 40 Mg/0.4 Ml Syr) 40 mg SQ Q24H [facility] Stop: 08/23/21 20:59 Last Admin: 07/26/21 22:32 Dose: 40 mg Documented by: Fluticasone Furoate (Fluticasone Furoate 200mcg 14 Puffs/Inhaler) 1 puffs INH DAILY [facility] Stop: 08/24/21 08:59 Last Admin: 07/27/21 10:10 Dose: 1 puffs Documented by: Guaifenesin (Guaifenesin 600 Mg Tabcr) 600 mg PO Q12 [facility] Stop: 08/24/21 20:59 Last Admin: 07/27/21 10:10 Dose: 600 mg Documented by: Hydrochlorothiazide (Hydrochlorothiazide 25 Mg Tab) 12.5 mg PO DAILY [facility] Stop: 08/24/21 08:59 Last Admin: 07/27/21 10:10 Dose: 12.5 mg Documented by: Remdesivir 100 mg/ Sodium (Chloride) 250 mls @ 250 mls/hr IV Q24H [facility]; Protocol Stop: 07/28/21 12:59 Last Admin: 07/27/21 13:09 Dose: 250 mls/hr Documented by: Dexamethasone 6 mg/ Syringe 1.5 mls @ 1 mls/min IV DAILY [facility] Stop: 08/04/21 08:59 Last Admin: 07/27/21 10:09 Dose: 1 mls/min Documented by: Lisinopril (Lisinopril 20 Mg Tab) 20 mg PO DAILY [facility] Stop: 08/24/21 08:59 Last Admin: 07/27/21 10:10 Dose: 20 mg Documented by: Lorazepam (Lorazepam 1 Mg Tab) 1 mg PO TID PRN PRN Reason: Anxiety Stop: 08/23/21 17:57 Nitroglycerin (Nitroglycerin Sl 0.4 Mg/Tab Tab) 0.4 mg SL UD PRN PRN Reason: Chest Pain Stop: 08/23/21 17:04 Ondansetron HCl (Ondansetron Inj 2 Mg/Ml 2 Ml Vial) 4 mg IV Q6H PRN PRN Reason: Nausea Stop: 08/23/21 17:04 Pregabalin (Pregabalin 100 Mg Cap) 200 mg PO BID [facility] Stop: 08/23/21 20:59 Last Admin: 07/27/21 10:09 Dose: 200 mg Documented by: Sodium Chloride (Sodium Chloride 0.9% 10ml Flush) 30 ml IV Q24H [facility] Stop: 07/28/21 12:01 Last Admin: 07/27/21 13:09 Dose: 30 ml Documented by:
[2021-07-27 18:01] LABS: SARS CoV2 RNA(COVID-19) InHosp POSITIVE (Negative)
[2021-07-27] MEDS: ENOXAPARIN INJ 40 MG/0.4 ML SYR SQ SCH (21:44)
[2021-07-28] MEDS: ASCORBIC ACID 500 MG TAB PO SCH (08:41)
[2021-07-28] MEDS: dexAMETHasone 6 MG in SYRINGE 0 ML IV SCH (08:41)
[2021-07-28] MEDS: FLUTICASONE FUROATE 200MCG 14 PUFFS/INHALER INH SCH (08:42)
[2021-07-28] MEDS: guaiFENesin 600 MG TABCR PO SCH (08:42)
[2021-07-28] MEDS: hydroCHLOROthiazide 25 MG TAB PO SCH (08:43)
[2021-07-28] MEDS: lisinopril 20 MG TAB PO SCH (08:44)
[2021-07-28] MEDS: PREGABALIN 100 MG CAP PO SCH (08:45)
[2021-07-28 09:55] LABS: Creatinine Clr Calc Pharmacy 83.4 ml/min; Est GFR (African American) 95.5 ml/min; Est GFR (Non-African American) 82.4 ml/min
[2021-07-28] MEDS: REMDESIVIR 100 MG in SODIUM CHLORIDE 0.9% 230 ML IV SCH (12:09)
[2021-07-28] MEDS: SODIUM CHLORIDE 0.9% 10ML FLUSH IV SCH (13:08)
--- NOTE | 2021-07-28 14:50 | Discharge Summary ---
Date of Service July 28, 2021 Admission HPI Per Admitting Provider HISTORY OF PRESENT ILLNESS: This is a 55-year-old male with past medical history significant for hypertension, constipation, acoustic neuroma, chronic lacrimal canaliculitis of right lacrimal passage, reflex sympathetic dystrophy, mild depression, history of nonmelanoma skin cancer, presents with shortness of breath and cough. 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 He was staying at home quarantining, but initially on time, he had mild diarrhea that got resolved. Currently, he is having cough and when he blew up the nose, which was somewhat bloody and yellowish color. Denies any sore throat. Appetite is very poor. Main symptom is very fatigued and difficulty ambulating, poor appetite. Denies any chest pain and today was getting more short of breath and advised to come to the hospital. Currently, requiring 2 liters of oxygen, resting comfortably and hemodynamically stable. He was 89% on room air. Denies any blurred vision or double visions. No sore throat. He was feeling nauseous, but no vomiting. Normal bladder movements. No swelling in the legs, no rash. Admission Exam Per Admitting Provider PHYSICAL EXAMINATION: GENERAL: The patient is of moderate build, not in acute distress. VITAL SIGNS: Temperature 37.3, pulse 86, respiratory rate 24, blood pressure 134/93, oxygen 94% on 2 liters. HEENT: Pupils equal, round and reactive to light. Mouth is somewhat deviated to the left side. NECK: No JVD, no neck masses. CARDIOVASCULAR: S1 and S2 heard. Regular rate and rhythm. No murmur, no gallop. RESPIRATORY: Normal AP diameter. No accessory muscle use. No wheezing, no crackles. ABDOMEN: Soft, bowel sounds present, nontender, no distention. CENTRAL NERVOUS SYSTEM: Alert, awake, and oriented. Speech is clear. Moves extremities. EXTREMITIES: No edema, no erythema. Principal Diagnosis COVID pneumonia Discharge Exam CONSTITUTIONAL: WNWD, vitals as above, generally well-appearing, NAD EYES: normal conjunctivae, no scleral icterus ENT: external ear and nose normal, right facial paralysis that is chronic, MMM NECK: trachea midline RESPIRATORY: clear to auscultation bilaterally, no crackles, rales or wheezes, normal respiratory effort CARDIOVASCULAR: regular rate and rhythm, S1 and 2 heard without murmurs, gallops or rubs, no JVD, no peripheral edema GASTROINTESTINAL: soft, nontender, ND, no guarding MUSCULOSKELETAL: strength 5/5 throughout, head is normocephalic and atraumatic SKIN: warm and dry NEUROLOGIC: CN 2-12 grossly intact, normal cognition, normal speech, no tremor, no gross focal deficits. PSYCHIATRIC: alert cooperative and oriented to person, place and time. Discharge Data Allergies Allergy/AdvReac Type Severity Reaction Status Date / Time No Known Allergies Allergy Unverified 07/24/21 10:47 Consultations 07/24/21 11:16 ED Decision to Admit Stat Ordered Studies Laboratory Results WBC 11.11 K/uL (4.8-10.8) H 07/27/21 08:15 RBC 5.12 M/uL (4.7-6.1) 07/27/21 08:15 Hgb 16.3 g/dL (14.0-18.0) 07/27/21 08:15 Hct 48.8 % (42-52) 07/27/21 08:15 MCV 95.3 fL (80-100) 07/27/21 08:15 MCH 31.8 pg (25-34) 07/27/21 08:15 MCHC 33.4 g/dL (32-36) 07/27/21 08:15 RDW Std Deviation 46.1 fL (36.4-46.3) 07/27/21 08:15 RDW Coeff of Hao 13.2 % (11.5-14.5) 07/27/21 08:15 Plt Count 542 K/uL (130-400) H 07/27/21 08:15 MPV 10.7 fL (7.4-10.4) H 07/27/21 08:15 Immature Gran % (Auto) 0.5 % 07/25/21 05:38 Neut % (Auto) 68.1 % 07/25/21 05:38 Lymph % (Auto) 21.2 % 07/25/21 05:38 Fajardo % (Auto) 8.6 % 07/25/21 05:38 Eos % (Auto) 0.8 % 07/25/21 05:38 Baso % (Auto) 0.8 % 07/25/21 05:38 Neut # (Auto) 4.53 K/uL (1.4-6.5) 07/25/21 05:38 Lymph # (Auto) 1.41 K/uL (1.2-3.4) 07/25/21 05:38 Fajardo # (Auto) 0.57 K/uL (0.11-0.59) 07/25/21 05:38 Eos # (Auto) 0.05 K/uL (0-0.5) 07/25/21 05:38 Baso # (Auto) 0.05 K/uL (0-0.2) 07/25/21 05:38 Immature Gran # (Auto) 0.03 K/uL (0.00-0.02) H 07/25/21 05:38 PT 10.1 Seconds (9.0-12.0) 07/24/21 09:32 INR 1.0 (0.9-1.1) 07/24/21 09:32 APTT 26.2 Seconds (21.0-31.0) 07/24/21 09:32 PTT Ratio 1.0 07/24/21 09:32 Sodium 138 mmol/L (136-145) 07/27/21 08:15 Potassium 3.8 mmol/L (3.5-5.1) 07/27/21 09:41 Chloride 106 mmol/L (98-107) 07/27/21 08:15 Carbon Dioxide 23 mmol/L (21-32) 07/27/21 08:15 Anion Gap 9.0 (3-11) 07/27/21 08:15 BUN 19 mg/dl (7-18) H 07/27/21 08:15 Creatinine 1.02 mg/dl (0.6-1.4) 07/28/21 07:54 Est Cr Clr Drug Dosing 83.4 ml/min 07/28/21 07:54 Est GFR ( Amer) 95.5 ml/min 07/28/21 07:54 Est GFR (Non-Af Amer) 82.4 ml/min 07/28/21 07:54 BUN/Creatinine Ratio 20.0 (10-20) 07/27/21 08:15 Glucose 99 mg/dl (70-99) 07/27/21 08:15 POC Glucose 133 mg/dl (70-99) H 07/26/21 16:58 Lactate 1.3 mmol/L (0.4-2.0) 07/24/21 10:38 Calcium 9.2 mg/dl (8.5-10.1) 07/27/21 08:15 Magnesium 2.5 mg/dl (1.8-2.4) H 07/25/21 05:38 Total Bilirubin 0.4 mg/dl (0.2-1) 07/25/21 05:38 Direct Bilirubin 0.1 mg/dl (0-0.2) 07/25/21 05:38 AST 29 U/L (15-37) 07/28/21 07:54 ALT 128 (12-78) H 07/28/21 07:54 Alkaline Phosphatase 71 U/L (45-117) 07/25/21 05:38 Troponin I < 0.015 ng/ml (0-0.045) 07/24/21 09:32 C-Reactive Protein 1.31 mg/dl (0-0.29) H 07/27/21 08:15 Total Protein 6.7 gm/dl (6.4-8.2) 07/25/21 05:38 Albumin 2.5 gm/dl (3.4-5.0) L 07/25/21 05:38 Globulin 4.6 gm/dl (2.5-4.0) H 07/24/21 09:32 Albumin/Globulin Ratio 0.6 (0.9-2) L 07/24/21 09:32 Procalcitonin 0.08 ng/ml (0-0.5) 07/24/21 11:43 SARS-CoV-2 (PCR) POSITIVE (Negative) A* 07/24/21 09:55 Influenza Type A (PCR) Negative (Neg) 07/24/21 09:55 Influenza Type B (PCR) Negative (Neg) 07/24/21 09:55 RSV (RT-PCR) Negative (Neg) 07/24/21 09:55 Impressions Chest X-Ray 07/24/21 09:32 XR chest 1V portable CLINICAL HISTORY: Shortness of breath. COMPARISON STUDY: No previous studies for comparison. FINDINGS: Lung volumes are normal. There is no pneumothorax or pleural effusion. Moderate multifocal bilateral airspace opacities are present. Borderline enlargement of the cardiac silhouette is present. Mediastinal contours are otherwise unremarkable. IMPRESSION: Moderate multifocal airspace opacities within the lungs which favor viral pneumonia. Radiographic follow-up to ensure resolution is recommended. ACT 112: Negative or not required by law. Electronically signed by: Jaime Meredith M.D. 07/24/2021 10:00 AM Hospital Course (1) Pneumonia due to COVID-19 virus: Admitted to medicine floor and treated with remdesivir and dexamethasone, oxygen supplementation. Hypoxia resolved prior to discharge. Passed a two step test and was discharged in stable condition to home. Close primary care followup was recommended. (2) Hypoxia: Secondary to pneumonia, resolved (3) Depression: Continue duloxetine per home regimen. Notably outpatient record mentions Ativan, however, do not see this listed on PDMP. Okay to prescribe if patient is requesting but currently this is not the case. (4) Hypertension: Chronic, controlled. Continue lisinopril and HCTZ per outpatient regimen. (5) Reflex sympathetic dystrophy: Continue pregabalin per outpatient regimen. Patient is requesting PT and OT evaluations prior to discharge home as he feels he is not walking well. These were ordered. (6) DVT prophylaxis: Lovenox Full code Disposition-to home in stable condition. Close primary care followup recommended when off home isolation. Aisha Martin DO [facility] Hospitalist Total Time Total Time Spent Total Time Spent (In Minutes): 60 Discharge Plan Discharge Items Patient Disposition: Home - Self-Care Reason For Visit: SOB Discharge Diagnosis: COVID pneumonia Condition on Discharge: Good Activity: Resume your previous activity Non-emergency contact: Primary Care Provider Call non-emergency contact if: you have any medication questions, your symptoms worsen and you have a fever Follow-up/Referrals: Bonnie Hernandez MD [Primary Care Provider] - 07/31/21 11:00 am (Date & Time 07/31/2021 11:00 AM Provider Bonnie Hernandez MD Department General Internal Medicine [facility] PLEASE NOTE THAT THIS IS A TELEHEALTH APPOINTMENT. PLEASE FOLLOW THE INSTRUCTIONS PROVIDED IN YOUR EMAIL. IF YOU HAVE ANY QUESTIONS REGARDING THIS APPOINTMENT, PLEASE CALL ) Diet: Regular Addtl Attending Provider Instructions: It is recommended that you followup with your primary care physician within one week of hospital discharge to ensure you are still doing well after leaving the hospital. Please continue to observe all social distancing and masking recommendations per [facility] guidelines. It is recommended that you remain on home isolation for at least 10 days past symptom onset to stop the spread of COVID-19. It is recommended that you repeat a chest xray in 4-6 weeks to ensure complete resolution of pneumonia. It was a pleasure taking care of you! Please call if you have any questions or problems. You can reach a [facility] hospitalist on duty at [facility] 24 hours a day by calling [phone]. Take care of yourself. Aisha Martin DO [facility] Hospitalist Pending Studies at Discharge: No Stand-Alone Forms: My [facility] Medications and DC Order Prescriptions: Continued acetaminophen [Tylenol] 325 mg Tablet 500 mg PO PRN Qty: 0 RF: 0 ibuprofen 200 mg Tablet 400 mg PO Q6H PRN (Reason: Pain) Qty: 0 RF: 0 ascorbic acid (vitamin C) 100 mg Tablet 100 mg PO DAILY Qty: 0 RF: 0 lorazepam 1 mg Tablet 0 mg PO TID PRN (Reason: Anxiety) Qty: 0 RF: 0 alpha lipoic acid 50 mg Capsule 0 mg PO DAILY Qty: 0 RF: 0 CBD Oil 0 applic topical DAILY PRN (Reason: Pain) Qty: 0 RF: 0 clonidine HCl 0.1 mg tablet 0.1 mg PO HS PRN (Reason: Sleep) RF: 0 lisinopril 20 mg tablet 20 mg PO DAILY RF: 0 hydrochlorothiazide 12.5 mg capsule 12.5 mg PO DAILY RF: 0 pregabalin 200 mg capsule 200 mg PO BID RF: 0 duloxetine 30 mg capsule,delayed release(DR/EC) 30 mg PO DAILY RF: 0 Discharge Orders: Discharge Order (Routine); Ordered 07/28/21 Ordered By: Aisha Fowler/Other Patient Handouts: COVID-19 Home Care Admission Data Admit Date/Time: 07/24/21 12:51 Attending Provider: Aisha Martin Admit Provider: Lucho Herrera Primary Care Provider: Bonnie Hernandez Other Interventions: Discharge Summary Assessment (RN) Last Done: 07/28/21 18:27
== END 2021-07-28 22:08 | disposition home or self-care (01) | DRG 177 ==
LOC: ED 09:12 → EDINP 12:51 → INTOOBSV 12:51 → OBSVTOIN 12:51 → SUATTDRO 12:51 → 3N 15:58

== ENCOUNTER 2023-06-18 16:48 | Inpatient (IN) ==
[2023-06-18] MEDS ORDERED: VANCOMYCIN HCL 1,500 MG in SODIUM CHLORIDE 0.9% 500 ML IV ONE (18:23)
[2023-06-18] MEDS ORDERED: VANCOMYCIN CONSULT ACTIVE PRN (18:23)
[2023-06-18] MEDS ORDERED: ACYCLOVIR SOD IV ONE (18:28)
[2023-06-18] MEDS ORDERED: DEXTROSE 5% IV ONE (18:28)
--- NOTE | 2023-06-18 18:28 | Emergency Department Note ---
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 He notes that he also has trouble with his tear duct which does not work. Symptoms initially started on Tuesday with some redness and swelling. He was placed on Augmentin and started taking it Tuesday and . He is taken about 3 days worth a nd has been gradually getting worse. Tuesday he noticed that the rash went from the eyelid to the face. He denies any pain within the eye. No loss or change in vision. ADDITIONAL HISTORY OBTAINED: Per HPI Chronic Medical/Social Conditions Affecting Care: Per HPI PAST MEDICAL HISTORY:See Below PAST SURGICAL HISTORY:See Below FAMILY HISTORY:See Below SOCIAL HISTORY:See Below HOME MEDICATIONS:See Below ALLERGIES:See Below VITALS:See Below PHYSICAL EXAMINATION: GENERAL: Sitting up in bed, alert, well appearing, well nourished, no distress, non-toxic EYE EXAM: Sclera is injected. PERRL and EOM's grossly intact. HEAD: Erythema of the right upper and lower lid tracking through the cheek into the mid nose with some vesicles over the right temporal region tracking into the hairline OROPHARYNX: no exudate, no erythema, lips, buccal mucosa, and tongue normal and mucous membranes are moist NECK: supple, no nuchal rigidity, no adenopathy, non-tender LUNGS: Clear to auscultation. Normal chest wall mechanics HEART: no murmurs, S1 normal and S2 normal ABDOMEN: abdomen soft, non-tender, normo-active bowel sounds, no masses, no rebound or guarding. BACK: Back is symmetrical on inspection and there is no deformity, no midline tenderness, no CVA tenderness. SKIN: no rashes and no bruising UPPER EXTREMITIES: upper extremities are grossly normal. LOWER EXTREMITIES: No pitting edema. NEURO EXAM: Normal sensorium, right-sided facial droop. Unable to wrinkle right forehead. Slightly slurred speech, no weakness of arms, no weakness of legs. No drift. Finger to nose intact. Gross sensation intact. MEDICAL DECISION MAKING: Patient is a 57-year-old male with a past medical history of an acoustic neuroma with surgery and chronic lacrimal canaliculitis with a paralyzed 7th cranial nerve on the right who presents ER for redness of the face. He was seen evaluated by his environmental professional on and the exam was unremarkable. He comes in today for worsening redness. He has been on oral antibiotics as an outpatient. He was given IV vancomycin, Rocephin and acyclovir. Labs were obtained and showed no significant leukocytosis or anemia. BMP was unremarkable. Discussed the case with [facility]'s ophthalmologi st as we had no one on-call here. He agreed that it would be best to transfer the patient down to [facility] however I noted the patient does not want to go and would prefer to stay here. He recommended ofloxacin drops 4 times a day as well as Valtrex and IV antibiotics if needed and having him follow-up with his environmental professional. I updated the patient at bedside. He again expressed that he would prefer to stay here. I did perform a slit-lamp exam. His pressures were fine. There was a small ulcer at the 6 o'clock position. I did discuss this with ophthalmology. I did express to him that would prefer to transfer him to [facility] and he declined and would prefer to stay here understanding that if this worsens in any way he would need to be transferred immediately. He denies any change in vision. Discussed with Dr. Peter. For further evaluation management treatment Observation Status: Indication: The patient was placed in observation status at 0. Right-sided facial cellulitis. During the time in observation, the patient was frequently reassessed and received IV vancomycin, Rocephin and valacyclovir as well as IV blood work and CT of the head. On final reassessment the patient CT confirms a preseptal cellulitis but no septal cellulitis and the patient will be discussed with [facility] as environmental professional and updated the patient and patient will be admitted here. We will observation time of 6 hours of observation. External Records Reviewed: Admitted on 05/2021 for COVID-pneumonia Consults/Care Managements Discussions: Per [facility] Triage Nursing notes reviewed. Limited review of prior medical records performed Vital Signs: reviewed and remarkable for HTN Differential diagnosis: Cellulitis, abscess, MRSA infection, DVT, necrotizing fasciitis, dermatitis, drug eruption, allergic reaction, as well as other pathologies. ER treatment provided: See below Diagnostics interpreted by me include EKG and cardiac monitoring as listed below: -Cardiac Monitoring: An order was placed for continuous cardiac monitoring. The monitor shows a rate of 90 with sinus rhythm. -ECG: none -Laboratory studies:Interpreted by me as stated above in MDM and shown below. Imaging studies: Xrays: As interpreted by me:none CTs show: CT of the face per my read showed no obvious abscess CT of the face per radiology showed a preseptal cellulitis Procedures:none Critical Care: None Past Med/Surg History Medical History (Updated 06/19/23 @ 00:30 by Wilbur Phoenix DO) Acoustic neuroma COVID-19 Depression DVT prophylaxis Hypertension Hypoxia Hypoxia Pneumonia Pneumonia due to COVID-19 virus Reflex sympathetic dystrophy SOB (shortness of breath) Social History Smoking Status: Never smoker Tobacco Type: Cigarettes Hx Alcohol Use: Yes Alcohol type: beer Hx Substance Use: No Preferred Language: Malian Communication Ability: Effective 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 Beliefs That Will Affect Care: Zoroastrian Zoroastrian Beliefs: no vaccines marital status: Single Current Living Situation: Alone Feels Safe at Home: Yes Assistive Devices: None Allergies Allergies Allergy/AdvReac Type Severity Reaction Status Date / Time No Known Allergies Allergy Unverified 07/24/21 10:47 Home Meds Home Medications Medication Instructions Recorded Confirmed ibuprofen 200 mg tablet 400 mg PO Q6H PRN Pain #0 tabs 03/08/12 06/19/23 ascorbic acid (vitamin C) 100 mg 100 mg PO DAILY ##0 12/15/15 07/24/21 tablet lorazepam 1 mg tablet 0 mg PO TID PRN Anxiety #0 tabs 12/15/15 07/24/21 CBD Oil 0 applic topical DAILY PRN Pain ##0 01/20/18 07/24/21 clonidine HCl 0.1 mg tablet 0.1 mg PO HS PRN Sleep 07/24/21 06/19/23 duloxetine 30 mg capsule,delayed 30 mg PO DAILY 07/24/21 07/24/21 release hydrochlorothiazide 12.5 mg capsule 12.5 mg PO DAILY 07/24/21 06/19/23 lisinopril 20 mg tablet 20 mg PO DAILY 07/24/21 06/19/23 pregabalin 200 mg capsule 200 mg PO BID 07/24/21 06/19/23 amoxicillin 500 mg-potassium 1 tab PO BID 06/19/23 06/19/23 clavulanate 125 mg tablet Results & Data (ED) Vital Signs Vital Signs - 24 hr 06/18/23 16:59 06/18/23 21:00 Temperature 36.4 C L Temperature Source Temporal Artery Scan Pulse Rate 91 H Pulse Rate [Finger] 59 L Pulse Rhythm [Finger] Regular Pulse Strength [Finger] Normal Respiratory Rate 18 18 Respiratory Effort / Characteristics Non-Labored Spontaneous Respiratory Depth Normal Respiratory Pattern Regular Blood Pressure 188/102 H Blood Pressure [Right Arm] 148/83 H Blood Pressure Mean 130 Blood Pressure Mean [Right Arm] 104 Blood Pressure Position [Right Arm] Sitting Pulse Oximetry 97 98 Oxygen Delivery Method Room Air Room Air Sepsis Recent Fever Within 48 Hours No Sepsis New/Unexplained Change in Mental Status N/A Sepsis Action Taken by Nursing No Action Required Laboratory Data 06/18/23 18:38 06/18/23 20:29 Lab Results 06/18/23 06/18/23 06/18/23 Range/Units 18:38 18:38 20:29 WBC 8.01 (4.8-10.8) K/ul RBC 4.88 (4.70-6.10) M/uL Hgb 15.0 (14.0-18.0) g/dl Hct 44.2 (42.0-52.0) % MCV 90.6 (80.0-100.0) fL MCH 30.7 (25.0-34.0) pg MCHC 33.9 (32.0-36.0) g/dL RDW Std Deviation 43.8 (36.4-46.3) fL RDW Coeff of Hao 13.1 (11.5-14.5) % Plt Count 213 (130-400) K/uL MPV 10.2 (9.4-12.4) fL Immature Gran % (Auto) 0.1 % Neut % (Auto) 69.1 % Lymph % (Auto) 21.1 % Irwin % (Auto) 7.2 % Eos % (Auto) 1.9 % Baso % (Auto) 0.6 % Neut # (Auto) 5.53 (1.40-6.50) K/uL Lymph # (Auto) 1.69 (1.20-3.40) K/uL Irwin # (Auto) 0.58 (0.11-0.59) K/uL Eos # (Auto) 0.15 (0.00-0.50) K/uL Baso # (Auto) 0.05 (0.00-0.20) K/uL Immature Gran # (Auto) 0.01 (0.01-0.20) K/uL Sodium 138 (136-145) mmol/L Potassium TNP 3.8 Chloride 104 (98-107) mmol/L Carbon Dioxide 29 (21-32) mmol/L Anion Gap 5 (3-11) BUN 17 (6-23) mg/dl Creatinine 0.89 (0.6-1.4) mg/dl Est Cr Clr Drug Dosing Not Reportable Est GFR ( Amer) 110.0 ml/min Est GFR (Non-Af Amer) 94.9 ml/min BUN/Creatinine Ratio 19.1 (10-20) Glucose 98 (70-99(Fasting)) mg/dl Calcium 9.1 (8.6-10.3) mg/dl Administered Medications Discontinued Medications Vancomycin HCl 1,500 mg/ (Sodium Chloride) 530 mls @ 200 mls/hr IV NOW ONE Stop: 06/18/23 21:01 Last Admin: 06/18/23 19:31 Dose: 200 mls/hr Documented By: FILEMON Acyclovir Sodium 790 mg/ (Dextrose) 265.8 mls @ 250 mls/hr IV NOW ONE; Protocol Stop: 06/18/23 19:31 Last Infusion: 06/18/23 20:35 Dose: 0 mls/hr Documented By: Admin: 06/18/23 19:31 Dose: 250 mls/hr Documented By: FILEMON Ioversol (Optiray 320 100ml) 90 ml IV ONCE ONE Stop: 06/18/23 20:59 Last Admin: 06/18/23 20:59 Dose: 90 ml Documented By: GISELA Imaging Data Radiologist's Impression: Face CT 06/18/23 18:23 Exam(s): CT FACIAL With Contrast IV Amt: OPTIRAY 320 90ML EXAM: CT Maxillofacial With Intravenous Contrast CLINICAL HISTORY: Reason for exam: ?preseptal cellulitis. TECHNIQUE: Axial computed tomography images of the face with intravenous contrast. CTDI is 72.59 mGy and DLP is 1468.75 mGy-cm. Automated exposure control was utilized for the study. A dose lowering technique was utilized adhering to the principles of ALARA. CONTRAST: Patient received OPTIRAY 320 90ML of IV contrast COMPARISON: No relevant prior studies available. FINDINGS: Bones/joints: Partial right mastoidectomy and severe sclerosis in the remaining mastoid portion, presumed chronic/postsurgical. Mild right mastoid tip effusion. No acute fracture. Soft tissues: Mild to moderate right preseptal cellulitis. No abscess. Orbits: Mild thickening and enhancement right anterior sclera, probable scleritis. No retrobulbar or abscess. Sinuses: Clear. No air-fluid levels. IMPRESSION: 1. Right preseptal cellulitis, and associated right scleritis. 2. No abscess. 3. Presumed chronic/postsurgical change of the right mastoids which are diffusely sclerotic. Effusion of the right mastoid tip. Electronically signed by: Dior Tellez M.D. 06/18/23 23:01 PM Discharge Plan Visit Data Chief Complaint: Eye Pain Stated Complaint: REF BY Olivier CAMARENA, RT EYE PAIN ED Provider: Wilbur Phoenix Discharge Problem: Preseptal cellulitis, Shingles Forms Stand Alone Forms: My [facility] Prescriptions Prescriptions: No Action ibuprofen 200 mg Tablet 400 mg PO Q6H PRN (Reason: Pain) Qty: 0 ascorbic acid (vitamin C) 100 mg Tablet 100 mg PO DAILY Qty: 0 lorazepam 1 mg Tablet 0 mg PO TID PRN (Reason: Anxiety) Qty: 0 Rx Instructions: TAKES 1-3 TS TID PRN CBD Oil 0 applic topical DAILY PRN (Reason: Pain) Qty: 0 clonidine HCl 0.1 mg tablet 0.1 mg PO HS PRN (Reason: Sleep) lisinopril 20 mg tablet 20 mg PO DAILY hydrochlorothiazide 12.5 mg capsule 12.5 mg PO DAILY pregabalin 200 mg capsule 200 mg PO BID duloxetine 30 mg capsule,delayed release(DR/EC) 30 mg PO DAILY amoxicillin-pot clavulanate 500-125 mg tablet 1 tab PO BID Rx Instructions: take for 7 days ordered on 06/16/23 Referrals Referrals: Bonnie Hernandez MD [Outside Practitioners] -
[2023-06-18 19:06] LABS: Basophils # (auto) 0.05 K/uL (0.00-0.20); Basophils % (auto) 0.6 %; Eosinophils # (auto) 0.15 K/uL (0.00-0.50); Eosinophils % (auto) 1.9 %; Hematocrit (blood only) 44.2 % (42.0-52.0); Immature Granulocytes # (auto) 0.01 K/uL (0.01-0.20); Immature Granulocytes % (auto) 0.1 %; Lymphocytes # (auto) 1.69 K/uL (1.20-3.40); Lymphocytes % (auto) 21.1 %; Mean Corpuscular Hemoglobin 30.7 pg (25.0-34.0); Mean Corpuscular Hgb Conc 33.9 g/dL (32.0-36.0); Mean Corpuscular Volume 90.6 fL (80.0-100.0); Mean Platelet Volume 10.2 fL (9.4-12.4); Monocytes # (auto) 0.58 K/uL (0.11-0.59); Monocytes % (auto) 7.2 %; Neutrophils # (auto) 5.53 K/uL (1.40-6.50); Neutrophils % (auto) 69.1 %; Platelet Count 213 K/uL (130-400); RDW Coefficient of Variation 13.1 % (11.5-14.5); RDW Standard Deviation 43.8 fL (36.4-46.3); Red Blood Count 4.88 M/uL (4.70-6.10); White Blood Count 8.01 K/ul (4.8-10.8)
[2023-06-18 19:58] LABS: Anion Gap 5 (3-11); BUN Creatinine Ratio 19.1 (10-20); Blood Urea Nitrogen 17 mg/dl (6-23); Calcium 9.1 mg/dl (8.6-10.3); Carbon Dioxide 29 mmol/L (21-32); Chloride 104 mmol/L (98-107); Est GFR (Non-African American) 94.9 ml/min; Glucose 98 mg/dl (70-99(Fasting)); Sodium 138 mmol/L (136-145)
[2023-06-18] MEDS ORDERED: OPTIRAY 320 100ml IV ONE (20:58)
--- NOTE | 2023-06-18 23:01 | CT Scan Report ---
Exam(s): CT FACIAL With Contrast IV Amt: OPTIRAY 320 90ML EXAM: CT Maxillofacial With Intravenous Contrast CLINICAL HISTORY: Reason for exam: ?preseptal cellulitis. TECHNIQUE: Axial computed tomography images of the face with intravenous contrast. CTDI is 72.59 mGy and DLP is 1468.75 mGy-cm. Automated exposure control was utilized for the study. A dose lowering technique was utilized adhering to the principles of ALARA. CONTRAST: Patient received OPTIRAY 320 90ML of IV contrast COMPARISON: No relevant prior studies available. FINDINGS: Bones/joints: Partial right mastoidectomy and severe sclerosis in the remaining mastoid portion, presumed chronic/postsurgical. Mild right mastoid tip effusion. No acute fracture. Soft tissues: Mild to moderate right preseptal cellulitis. No abscess. Orbits: Mild thickening and enhancement right anterior sclera, probable scleritis. No retrobulbar or abscess. Sinuses: Clear. No air-fluid levels. IMPRESSION: 1. Right preseptal cellulitis, and associated right scleritis. 2. No abscess. 3. Presumed chronic/postsurgical change of the right mastoids which are diffusely sclerotic. Effusion of the right mastoid tip. Electronically signed by: Dior Tellez M.D. 06/18/23 23:01 PM
[2023-06-19] MEDS ORDERED: AMPICILLIN/SULBACTAM SOD 3,000 MG in SODIUM CHLOR 0.9% MINI-B 100 ML IV STA (00:07)
[2023-06-19] MEDS ORDERED: KETOROLAC TROMETHAMINE 15 MG/ML VIAL IV ONE (01:22)
--- NOTE | 2023-06-19 02:09 | History & Physical Report ---
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 Patient also states his right tear ducts does not work and sometimes gets infection in that eye. Patient states he started having red eyes last Tuesday and got worse on Tuesday Preseptal cellulitis right facial cellulitis shingles? Eye was examined under slit-lamp exam by ER and there was a small ulcer at 6 o'clock position. Pressures were fine ER talk to the [facility] ophthalmology and discussed the findings and they recommend transfer but patient declined [facility] oththalmology recommended ofloxacin drops, Valtrex and IV antibiotics for cellulitis Patient got ofloxacin drops, IV acyclovir, IV Vanco and IV Unasyn in the ER We will continue ofloxacin drops, change in antibiotics to p.o. Valtrex and IV Zosyn and continue IV vancomycin If not improving or worsening will contact ophthalmology again and transfer as soon as possible. Hypertension Continue home lisinopril DVT prophylaxis SCDs for now Disposition med/telemetry Full code History of Present Illness Chief Complaint: Right red eye and right facial cellulitis Primary Care Provider: Klever De Leon MD 57-year-old male with past medical significant for hypertension, history of basal cell carcinoma, acoustic neuroma, chronic lachrymal canaliculitis of right lacrimal passage wich damaged 7th and 5th cranial nerves and has permanent right-sided facial droop. Patient also states his right tear ducts does not work and sometimes gets infection in that eye. Patient states he started having red eyes last Tuesday and got worse on Tuesday. He saw distribution collection operator on and eye was examined and was told eye was fine and was prescribed Augmentin. As the redness spread across the face on the right side went to urgent care and was advised to come to the ER. There is no ophthalmology coverage at [facility] currently so ER physician talked to the [facility] seed corn manager production. Ophthalmology recommended to transfer to [place] but patient declined. [facility] ophthalmology recommended ofloxacin eyedrops, Valtrex and antibiotics for cellulitis. Patient currently having headache. Vision is okay. No runny nose. No cough. No fevers. No difficulty swallowing. No chest pain or shortness of breath. No nausea or vomiting. No abdominal pain. Normal bowel and bladder movements. Currently resting comfortably and hemodynamically stable. Past medical history. As mentioned above Past surgical history. Colonoscopy. He had surgery. Excision of recurrent acoustic neuroma in 2010. Excision of sebaceous cyst on left mid back in 2008. Mohs surgery stage II in 2004 on left shoulder. Umbilical hernia repair. Social history. Quit smoking to the nines. Smoked half pack a day for 5 years. Alcohol 3 beers per night. Drug use hemp oil as per [employer]. Family history. Mother had breast cancer. Allergies Allergy/AdvReac Type Severity Reaction Status Date / Time No Known Allergies Allergy Unverified 06/19/23 00:31 Home Medications Medication Instructions Recorded Confirmed Type ibuprofen 200 mg tablet 400 mg PO Q6H PRN Pain #0 tabs 03/08/12 06/19/23 History CBD Oil 0 applic topical DAILY PRN Pain ##0 01/20/18 07/24/21 History lisinopril 20 mg tablet 20 mg PO DAILY 07/24/21 06/19/23 History pregabalin 200 mg capsule 200 mg PO BID 07/24/21 06/19/23 History amoxicillin 500 mg-potassium 1 tab PO BID 06/19/23 06/19/23 History clavulanate 125 mg tablet Past Med/Surg History Medical History (Updated 06/19/23 @ 00:30 by Wilbur Phoenix DO) Acoustic neuroma COVID-19 Depression DVT prophylaxis Hypertension Hypoxia Hypoxia Pneumonia Pneumonia due to COVID-19 virus Reflex sympathetic dystrophy SOB (shortness of breath) Social History Smoking Status: Never smoker Tobacco Type: Cigarettes Hx Alcohol Use: Yes Alcohol type: beer Hx Substance Use: No Preferred Language: Slovenian Communication Ability: Effective Certified Wellness Program Coordinator Required: No Beliefs That Will Affect Care: Uatsdin Uatsdin Beliefs: no vaccines marital status: Single Current Living Situation: Alone Feels Safe at Home: Yes Assistive Devices: None Review of Systems Review of Systems: All systems reviewed & are unremarkable except as noted in HPI & below Physical Exam Physical Exam: General- Not in distress. Head- atraumatic. Face: Erythematous changes of whole right face. Eyes- PERRL, right eye lid is swollen and red. red conjunctiva of right eye ENT- oropharynx clear Neck- supple, no JVD, tender right submandibular lymph node. Lungs- clear to auscultation , no wheezing or crackles. Heart- regular rate and rhythm; no murmur, no gallop. Abdomen- normal bowel sounds, soft, nontender, no distension. Extremities- no pretibial edema, no erythema seen. Neuro- alert, oriented x 3; PERRL, right facial droop; no dysarthria; obeys commands, moves extremities. Results & Data Results & Data Vital Signs (Past 12 Hours) Vital Signs Temp Pulse Pulse Resp BP BP Pulse Ox 06/18/23 21:00 59 L 18 148/83 H 98 06/18/23 16:59 36.4 C L 91 H 18 188/102 H 97 O2 Del Method 06/18/23 21:00 Room Air 06/18/23 16:59 Room Air Diagnostic Findings Laboratory Results WBC 8.01 K/ul (4.8-10.8) 06/18/23 18:38 RBC 4.88 M/uL (4.70-6.10) 06/18/23 18:38 Hgb 15.0 g/dl (14.0-18.0) 06/18/23 18:38 Hct 44.2 % (42.0-52.0) 06/18/23 18:38 MCV 90.6 fL (80.0-100.0) 06/18/23 18:38 MCH 30.7 pg (25.0-34.0) 06/18/23 18:38 MCHC 33.9 g/dL (32.0-36.0) 06/18/23 18:38 RDW Std Deviation 43.8 fL (36.4-46.3) 06/18/23 18:38 RDW Coeff of Hao 13.1 % (11.5-14.5) 06/18/23 18:38 Plt Count 213 K/uL (130-400) 06/18/23 18:38 MPV 10.2 fL (9.4-12.4) 06/18/23 18:38 Immature Gran % (Auto) 0.1 % 06/18/23 18:38 Neut % (Auto) 69.1 % 06/18/23 18:38 Lymph % (Auto) 21.1 % 06/18/23 18:38 [place] % (Auto) 7.2 % 06/18/23 18:38 Eos % (Auto) 1.9 % 06/18/23 18:38 Baso % (Auto) 0.6 % 06/18/23 18:38 Neut # (Auto) 5.53 K/uL (1.40-6.50) 06/18/23 18:38 Lymph # (Auto) 1.69 K/uL (1.20-3.40) 06/18/23 18:38 [place] # (Auto) 0.58 K/uL (0.11-0.59) 06/18/23 18:38 Eos # (Auto) 0.15 K/uL (0.00-0.50) 06/18/23 18:38 Baso # (Auto) 0.05 K/uL (0.00-0.20) 06/18/23 18:38 Immature Gran # (Auto) 0.01 K/uL (0.01-0.20) 06/18/23 18:38 Sodium 138 mmol/L (136-145) 06/18/23 18:38 Potassium 3.8 mmol/L (3.5-5.1) 06/18/23 20:29 Chloride 104 mmol/L (98-107) 06/18/23 18:38 Carbon Dioxide 29 mmol/L (21-32) 06/18/23 18:38 Anion Gap 5 (3-11) 06/18/23 18:38 BUN 17 mg/dl (6-23) 06/18/23 18:38 Creatinine 0.89 mg/dl (0.6-1.4) 06/18/23 18:38 Est Cr Clr Drug Dosing Not Reportable 06/18/23 18:38 Est GFR ( Amer) 110.0 ml/min 06/18/23 18:38 Est GFR (Non-Af Amer) 94.9 ml/min 06/18/23 18:38 BUN/Creatinine Ratio 19.1 (10-20) 06/18/23 18:38 Glucose 98 mg/dl (70-99(Fasting)) 06/18/23 18:38 Calcium 9.1 mg/dl (8.6-10.3) 06/18/23 18:[address] 06/18/23 18:23 Exam(s): CT FACIAL With Contrast IV Amt: OPTIRAY 320 90ML EXAM: CT Maxillofacial With Intravenous Contrast CLINICAL HISTORY: Reason for exam: ?preseptal cellulitis. TECHNIQUE: Axial computed tomography images of the face with intravenous contrast. CTDI is 72.59 mGy and DLP is 1468.75 mGy-cm. Automated exposure control was utilized for the study. A dose lowering technique was utilized adhering to the principles of ALARA. CONTRAST: Patient received OPTIRAY 320 90ML of IV contrast COMPARISON: No relevant prior studies available. FINDINGS: Bones/joints: Partial right mastoidectomy and severe sclerosis in the remaining mastoid portion, presumed chronic/postsurgical. Mild right mastoid tip effusion. No acute fracture. Soft tissues: Mild to moderate right preseptal cellulitis. No abscess. Orbits: Mild thickening and enhancement right anterior sclera, probable scleritis. No retrobulbar or abscess. Sinuses: Clear. No air-fluid levels. IMPRESSION: 1. Right preseptal cellulitis, and associated right scleritis. 2. No abscess. 3. Presumed chronic/postsurgical change of the right mastoids which are diffusely sclerotic. Effusion of the right mastoid tip. Electronically signed by: Dior Tellez M.D. 06/18/23 23:01 PM Code Status & VTE Plan VTE Prophylaxis Plan VTE Prophylaxis will be ordered: Yes
[2023-06-19] MEDS ORDERED: NITROGLYCERIN SL 0.4 MG/TAB TAB SL PRN (04:07)
[2023-06-19] MEDS ORDERED: POLYETHYLENE (MIRALAX) 17 GM PACK PO PRN (04:07)
[2023-06-19] MEDS ORDERED: Patient's HEIGHT &/or WEIGHT Needed STA (04:18)
[2023-06-19] MEDS: PIPERACILLIN/TAZOBACTAM 4.5 GM in DEXTROSE 5% MINI-B 100 ML IV SCH ×3 (05:21→21:25)
[2023-06-19] MEDS: SODIUM CHLORIDE 0.9% 1,000 ML IV SCH ×2 (05:23→23:54)
[2023-06-19] MEDS: VANCOMYCIN HCL 750 MG in SODIUM CHLORIDE 0.9% 250 ML IV SCH ×3 (08:03→23:53)
--- NOTE | 2023-06-19 09:37 | Pharmacy Report ---
Pharmacy PK ABX Note - Date of Service June 19, 2023 - Assessment and Plan Assessment 57 year old M receiving Zosyn, vancomycin, and valacyclovir for treatment of preseptal cellulitis/facial cellulitis/possible Shingles. SCr at/near baseline late yesterday. Next ordered for tomorrow AM Plan Vancomycin * Loading dose: 1500 mg IV x 1 * Maintenance dose: 750 mg IV every 8 hours * Regimen is predicted to achieve target AUC/TRINH of 400-600 mg/L.hr * Trough level ordered for 06/20 @ 0530 Pharmacy will continue to follow and will adjust dose/frequency as necessary. Thank you. Pharmacy has transitioned to AUC monitoring for vancomycin. AUC/TRINH is the preferred PK/PD target and is associated with decreased risk of nephrotoxicity compared to traditional trough targets.
[2023-06-19] MEDS: lisinopril 20 MG TAB PO SCH (09:44)
[2023-06-19] MEDS: OFLOXACIN 0.3% 75 DROPS/5 ML BTL OP SCH ×4 (09:44→21:24)
[2023-06-19] MEDS: valACYclovir HCL 500 MG TABLET PO SCH ×3 (09:46→21:26)
[2023-06-19] MEDS: PREGABALIN 100 MG CAP PO SCH ×2 (09:51→21:24)
[2023-06-19] MEDS: ACETAMINOPHEN 325 MG TAB PO PRN (14:18)
--- NOTE | 2023-06-19 17:36 | Hospitalist Progress Note ---
Date of Service June 19, 2023 Assessment & Plan Admission and Anticipated Discharge Date Admission Date: June 19, 2023 Subjective Pt reports no changes - denies any worsening of symptoms. Prefers not to be transferred to other medical center such as [place]. Plan to see ophthalmology tmrw (Dr. Mercedes piped buttonhole machine operator). Pt seen Dr. Kamara recently- however Dr. Kamara is not currently piped buttonhole machine operator - no coverage available this weekend and therefore transfer was recommended. I contacted Dr. Kamara via [employer] text today - message was not received. Plan to discuss with ophthalmology tmrw about further plan / care/ treatment for the pt. If pt's symptoms worsen overnight - will discuss transfer with the pt again. MD Thuy Results & Data Results & Data Vital Signs (Past 12 Hours) Vital Signs Temp Pulse Pulse Resp BP BP Pulse Ox 06/19/23 15:49 36.6 C 68 18 167/90 H 98 06/19/23 11:30 36.9 C 69 18 132/84 97 06/19/23 07:55 84 06/19/23 08:32 36.9 C 74 20 152/91 H 99 O2 Del Method 06/19/23 15:49 Room Air 06/19/23 11:30 Room Air 06/19/23 07:55 06/19/23 08:32 Room Air
[2023-06-20] MEDS ORDERED: VANCOMYCIN LEVEL ONE (05:30)
[2023-06-20] MEDS: PIPERACILLIN/TAZOBACTAM 4.5 GM in DEXTROSE 5% MINI-B 100 ML IV SCH ×3 (05:47→23:08)
[2023-06-20 06:36] LABS: Hematocrit (blood only) 43.4 % (42.0-52.0); Hemoglobin 14.8 g/dl (14.0-18.0); Mean Corpuscular Hemoglobin 30.9 pg (25.0-34.0); Mean Corpuscular Hgb Conc 34.1 g/dL (32.0-36.0); Mean Corpuscular Volume 90.6 fL (80.0-100.0); Platelet Count 194 K/uL (130-400); RDW Coefficient of Variation 12.7 % (11.5-14.5); RDW Standard Deviation 42.2 fL (36.4-46.3); Red Blood Count 4.79 M/uL (4.70-6.10); White Blood Count 8.51 K/ul (4.8-10.8)
[2023-06-20 07:01] LABS: Calcium 8.8 mg/dl (8.6-10.3); Creatinine Clr Calc Pharmacy 82.4 ml/min; Est GFR (African American) 96.4 ml/min; Est GFR (Non-African American) 83.2 ml/min; Phosphorus 2.8 mg/dl (2.5-4.9); Potassium 3.9 mmol/L (3.5-5.1)
[2023-06-20] MEDS: VANCOMYCIN HCL 750 MG in SODIUM CHLORIDE 0.9% 250 ML IV SCH ×3 (07:33→21:51)
--- NOTE | 2023-06-20 08:45 | Pharmacy Report ---
Pharmacy PK ABX Note - Date of Service June 20, 2023 - Assessment and Plan Assessment 06/20: * Reviewed vancomycin trough, level predicted to achieve a goal AUC/RTINH. Continue current dose. Patient awaiting ophthalmology consult. Serum creatinine stable. No cultures pending at this time. 06/19: * 57 year old M receiving Zosyn, vancomycin, and valacyclovir for treatment of preseptal cellulitis/facial cellulitis/possible Shingles. SCr at/near baseline late yesterday. Next ordered for tomorrow AM Plan Vancomycin * Continue vancomycin 750 mg IV every 8 hours * Regimen is predicted to achieve target AUC/TRINH of 400-600 mg/L.hr * Level to be ordered if continued and based on clinical status Pharmacy will continue to follow and will adjust dose/frequency as necessary. Thank you. Pharmacy has transitioned to AUC monitoring for vancomycin. AUC/TRINH is the preferred PK/PD target and is associated with decreased risk of nephrotoxicity compared to traditional trough targets.
[2023-06-20] MEDS: lisinopril 20 MG TAB PO SCH (09:10)
[2023-06-20] MEDS: OFLOXACIN 0.3% 75 DROPS/5 ML BTL OP SCH ×4 (09:10→19:42)
[2023-06-20] MEDS: PREGABALIN 100 MG CAP PO SCH ×2 (09:10→19:41)
[2023-06-20] MEDS: valACYclovir HCL 500 MG TABLET PO SCH ×3 (09:10→19:42)
--- NOTE | 2023-06-20 15:02 | Ophthalmology Consultation ---
Date of Consultation June 20, 2023 Assessment & Plan (1) Preseptal cellulitis: It appears that his preseptal cellulitis is improving on the IV antibiotic treatment. If he continues to improve he likely could be discharged home on oral antibiotic therapy. There is a tiny scratch on his right upper lid which may be the nidus for his infection or could have been from a shingles pustule. I do not see any evidence of orbital extension of his cellulitis. (2) Shingles: He appears to have shingles of his right side of his forehead. He does not have any ocular involvement at this time. I would complete a full 10-day course of valacyclovir 1 g by mouth 3 times daily. I recommend that he continue ofloxacin 4 times daily to the right eye for 7 days. I recommend that he use his normal lubrication regimen of tears during the day and ointment at night to the right eye. He can use his supplies from home that he has found works for him. He should follow-up with Dr. Stinson (his frame bender) within a week from discharge. History of Present Illness Reason for Consultation: Right upper lid preseptal cellulitis Attending Physician: Neil Daley MD History of Present Illness Patient began with redness and irritation of the right upper lid approximately 1 week ago[address] He saw Dr. Stinson last and was placed on oral amoxicillin. He continued to get worse as far as right upper lid redness and discomfort and came to the hospital. He states he also started getting a red rash on his right upper forehead around this time. Allergies Allergy/AdvReac Type Severity Reaction Status Date / Time No Known Allergies Allergy Unverified 06/19/23 00:31 Home Medications Medication Instructions Recorded Confirmed Type ibuprofen 200 mg tablet 400 mg PO Q6H PRN Pain #0 tabs 03/08/12 06/19/23 History CBD Oil 0 applic topical DAILY PRN Pain ##0 01/20/18 07/24/21 History lisinopril 20 mg tablet 20 mg PO DAILY 07/24/21 06/19/23 History pregabalin 200 mg capsule 200 mg PO BID 07/24/21 06/19/23 History amoxicillin 500 mg-potassium 1 tab PO BID 06/19/23 06/19/23 History clavulanate 125 mg tablet Patient History Medical History (Updated 06/19/23 @ 00:30 by Wilbur Phoenix DO) Acoustic neuroma COVID-19 Depression DVT prophylaxis Hypertension Hypoxia Hypoxia Pneumonia Pneumonia due to COVID-19 virus Reflex sympathetic dystrophy SOB (shortness of breath) Social History Smoking Status: Never smoker Tobacco Type: Cigarettes Hx Alcohol Use: Yes Alcohol type: beer Hx Substance Use: No Preferred Language: Yakut Communication Ability: Effective Tarper Required: No Beliefs That Will Affect Care: None marital status: Single Current Living Situation: Alone Other Information That Helps Us Care for You: No Feels Safe at Home: Yes Safety Concerns: Feels Safe At This Time Assistive Devices: Glasses Physical Exam Eyes: Pupils were equal round reactive to light and accommodation. There are pustules and erythema of the right upper forehead and brow. His right upper lid is mildly edematous and erythematous. He has ectropion of the right lower lid. He has +2 injection of the right eye with mild temporal chemosis and the appearance of a punctal plug coming out of his right lower lid puncta. His corneas were clear and his anterior chambers were deep and quiet of both eyes. He had trace nuclear sclerosis of his lenses. His visual acuity was 20/50 in the right eye and 20/30 in the left, with his glasses at near. His intraocular pressure was 12 in both eyes. Results & Data Vital Signs (Past 12 Hours) Vital Signs Temp Pulse Pulse Resp BP Pulse Ox O2 Del Method 06/20/23 12:29 36.8 C 72 19 143/77 H 96 Room Air 06/20/23 07:14 75 06/20/23 08:28 36.6 C 80 19 152/83 H 95 Room Air
--- NOTE | 2023-06-20 15:15 | Hospitalist Progress Note ---
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 Patient also states his right tear ducts does not work and sometimes gets infection in that eye. Patient states he started having red eyes last Tuesday and got worse on Tuesday Preseptal cellulitis right facial cellulitis shingles? Eye was examined under slit-lamp exam by ER and there was a small ulcer at 6 o'clock position. Pressures were fine ER talked to the [facility] ophthalmology and discussed the findings and they recommended transfer but patient declined [facility] ophthalmology recommended ofloxacin drops, Valtrex and IV antibiotics for cellulitis Patient got ofloxacin drops, IV acyclovir, IV Vanco and IV Unasyn in the ER We will continue ofloxacin drops, change in antibiotics to p.o. Valtrex and IV Zosyn and continue IV vancomycin If not improving or worsening will contact ophthalmology again and transfer as soon as possible. 06/20 Pt improved over the weekend. Seen by ophthalmology today (Dr. Verde) - (1) Preseptal cellulitis: It appears that his preseptal cellulitis is improving on the IV antibiotic treatment. If he continues to improve he likely could be discharged home on oral antibiotic therapy. There is a tiny scratch on his right upper lid which may be the nidus for his infection or could have been from a shingles pustule. I do not see any evidence of orbital extension of his cellulitis. (2) Shingles: He appears to have shingles of his right side of his forehead. He does not have any ocular involvement at this time. I would complete a full 10-day course of valacyclovir 1 g by mouth 3 times daily. I recommend that he continue ofloxacin 4 times daily to the right eye for 7 days. I recommend that he use his normal lubrication regimen of tears during the day and ointment at night to the right eye. He can use his supplies from home that he has found works for him. He should follow-up with Dr. Stinson (his journalists and other writers) within a week from discharge. Hypertension Continue home lisinopril DVT prophylaxis SCDs for now Disposition med/telemetry Full code Admission and Anticipated Discharge Date Admission Date: June 19, 2023 Subjective Pt seen in follow up of preseptal cellulitis, shingles Right face less edematous and erythema also improved No fever, chills, chest pain, shortness of breath No vision changes On admission - in ER it was recommended that patient would be transferred to [place], after discussing with journalists and other writers at [facility], and no ophthalmology coverage over the weekend. Patient did not want to be transferred and wanted to be evaluated today, on Tuesday by ophthalmology on-call, Dr. Verde. Pt was seen by Dr. Kamara recently. Review of Systems Review of Systems: All systems reviewed & are unremarkable except as noted in Subjective Physical Exam Physical Exam: General- WD/WN M in NAD Head- atraumatic. Face: Erythematous changes of whole right face (erythema and edema of R face improved) Eyes- PERRL, right eye lid is swollen and red. red conjunctiva of right eye ENT- oropharynx clear Neck- supple, no JVD, tender right submandibular lymph node. Lungs- clear to auscultation , no wheezing or crackles. Heart- regular rate and rhythm; no murmur, no gallop. Abdomen- normal bowel sounds, soft, nontender, no distension. Extremities- no pretibial edema, no erythema seen. Neuro- alert, oriented x 3; PERRL, right facial droop (chronic); no dysarthria; obeys commands, moves extremities. Results & Data Results & Data Vital Signs (Past 12 Hours) Vital Signs Temp Pulse Pulse Resp BP Pulse Ox O2 Del Method 06/20/23 12:29 36.8 C 72 19 143/77 H 96 Room Air 06/20/23 07:14 75 06/20/23 08:28 36.6 C 80 19 152/83 H 95 Room Air Laboratory Results 06/20/23 06/20/23 06/20/23 Range/Units 05:29 05:29 05:29 WBC 8.51 (4.8-10.8) K/ul RBC 4.79 (4.70-6.10) M/uL Hgb 14.8 (14.0-18.0) g/dl Hct 43.4 (42.0-52.0) % MCV 90.6 (80.0-100.0) fL MCH 30.9 (25.0-34.0) pg MCHC 34.1 (32.0-36.0) g/dL RDW Std Deviation 42.2 (36.4-46.3) fL RDW Coeff of Hao 12.7 (11.5-14.5) % Plt Count 194 (130-400) K/uL MPV 10.0 (9.4-12.4) fL Sodium 140 (136-145) mmol/L Potassium 3.9 (3.5-5.1) mmol/L Chloride 107 (98-107) mmol/L Carbon Dioxide 28 (21-32) mmol/L Anion Gap 5 (3-11) BUN 13 (6-23) mg/dl Creatinine 1.00 (0.6-1.4) mg/dl Est Cr Clr Drug Dosing 82.4 ml/min Est GFR ( Amer) 96.4 ml/min Est GFR (Non-Af Amer) 83.2 ml/min BUN/Creatinine Ratio 13.0 (10-20) Glucose 95 (70-99(Fasting)) mg/dl Calcium 8.8 (8.6-10.3) mg/dl Phosphorus 2.8 (2.5-4.9) mg/dl Magnesium 2.0 (1.7-2.4) mg/dl Random Vancomycin 10.5 (10-20) mcg/ml Medications Administered Current Inpatient Medications Acetaminophen (Acetaminophen 325 Mg Tab) 650 mg PO Q4H PRN PRN Reason: Pain or Fever Stop: 07/19/23 04:06 Last Admin: 06/19/23 14:18 Dose: 650 mg Piperacillin Sod/Tazobactam (Sod 4.5 gm/ Dextrose) 100 mls @ 25 mls/hr IV Q8H [facility]; Protocol Stop: 06/26/23 05:59 Last Admin: 06/20/23 13:10 Dose: 25 mls/hr Vancomycin HCl 750 mg/ Sodium (Chloride) 265 mls @ 200 mls/hr IV Q8H [facility] Stop: 06/26/23 05:59 Last Infusion: 06/20/23 14:31 Dose: Infused Lisinopril (Lisinopril 20 Mg Tab) 20 mg PO DAILY [facility] Stop: 07/19/23 08:59 Last Admin: 06/20/23 09:10 Dose: 20 mg Miscellaneous Information (Vancomycin Consult Active) 1 each N/A UD PRN PRN Reason: Consult Stop: 07/18/23 18:22 Nitroglycerin (Nitroglycerin Sl 0.4 Mg/Tab Tab) 0.4 mg SL Q5M PRN PRN Reason: Chest Pain Stop: 07/19/23 04:06 Ofloxacin (Ofloxacin 0.3% 75 Drops/5 Ml Btl) 2 drops OP QID [facility] Stop: 06/29/23 08:59 Last Admin: 06/20/23 13:10 Dose: 2 drops Polyethylene Glycol (Polyethylene (Miralax) 17 Gm Pack) 17 gm PO DAILY PRN PRN Reason: Constipation Stop: 07/19/23 04:06 Pregabalin (Pregabalin 100 Mg Cap) 200 mg PO BID [facility] Stop: 07/19/23 08:59 Last Admin: 06/20/23 09:10 Dose: 200 mg Valacyclovir HCl (Valacyclovir Hcl 500 Mg Tablet) 1,000 mg PO TID [facility] Stop: 06/29/23 08:59 Last Admin: 06/20/23 09:10 Dose: 1,000 mg
[2023-06-20] MEDS: ACETAMINOPHEN 325 MG TAB PO PRN (22:00)
[2023-06-20] MEDS ORDERED: MELATONIN 3 MG TAB PO PRN (22:18)
[2023-06-21] MEDS: VANCOMYCIN HCL 750 MG in SODIUM CHLORIDE 0.9% 250 ML IV SCH ×3 (05:09→20:02)
[2023-06-21 05:14] LABS: Hematocrit (blood only) 43.1 % (42.0-52.0); Hemoglobin 14.9 g/dl (14.0-18.0); Mean Corpuscular Hemoglobin 30.8 pg (25.0-34.0); Mean Corpuscular Hgb Conc 34.6 g/dL (32.0-36.0); Mean Corpuscular Volume 89.2 fL (80.0-100.0); Mean Platelet Volume 9.9 fL (9.4-12.4); Platelet Count 195 K/uL (130-400); RDW Coefficient of Variation 12.9 % (11.5-14.5); RDW Standard Deviation 42.3 fL (36.4-46.3); Red Blood Count 4.83 M/uL (4.70-6.10); White Blood Count 7.76 K/ul (4.8-10.8)
[2023-06-21 05:42] LABS: BUN Creatinine Ratio 13.7 (10-20); Calcium 9.2 mg/dl (8.6-10.3); Creatinine Clr Calc Pharmacy 80.8 ml/min; Est GFR (African American) 94.1 ml/min; Est GFR (Non-African American) 81.2 ml/min; Phosphorus 3.8 mg/dl (2.5-4.9)
[2023-06-21] MEDS: PIPERACILLIN/TAZOBACTAM 4.5 GM in DEXTROSE 5% MINI-B 100 ML IV SCH ×3 (06:18→21:52)
[2023-06-21] MEDS: valACYclovir HCL 500 MG TABLET PO SCH ×3 (08:50→20:05)
[2023-06-21] MEDS: lisinopril 20 MG TAB PO SCH (08:50)
[2023-06-21] MEDS: OFLOXACIN 0.3% 75 DROPS/5 ML BTL OP SCH ×4 (08:51→20:06)
[2023-06-21] MEDS: PREGABALIN 100 MG CAP PO SCH ×2 (08:59→20:11)
--- NOTE | 2023-06-21 14:55 | Hospitalist Progress Note ---
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 Patient also states his right tear ducts does not work and sometimes gets infection in that eye. Patient states he started having red eyes last Tuesday and got worse on Tuesday Preseptal cellulitis right facial cellulitis shingles? Eye was examined under slit-lamp exam by ER and there was a small ulcer at 6 o'clock position. Pressures were fine ER talked to the [facility] ophthalmology and discussed the findings and they recommended transfer but patient declined [facility] ophthalmology recommended ofloxacin drops, Valtrex and IV antibiotics for cellulitis Patient got ofloxacin drops, IV acyclovir, IV Vanco and IV Unasyn in the ER We will continue ofloxacin drops, change in antibiotics to p.o. Valtrex and IV Zosyn and continue IV vancomycin If not improving or worsening will contact ophthalmology again and transfer as soon as possible. 06/20 Pt improved over the weekend. Seen by ophthalmology today (Dr. Verde) - (1) Preseptal cellulitis: It appears that his preseptal cellulitis is improving on the IV antibiotic treatment. If he continues to improve he likely could be discharged home on oral antibiotic therapy. There is a tiny scratch on his right upper lid which may be the nidus for his infection or could have been from a shingles pustule. I do not see any evidence of orbital extension of his cellulitis. (2) Shingles: He appears to have shingles of his right side of his forehead. He does not have any ocular involvement at this time. I would complete a full 10-day course of valacyclovir 1 g by mouth 3 times daily. I recommend that he continue ofloxacin 4 times daily to the right eye for 7 days. I recommend that he use his normal lubrication regimen of tears during the day and ointment at night to the right eye. He can use his supplies from home that he has found works for him. 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 Hypertension Continue home lisinopril DVT prophylaxis SCDs for now Disposition med/telemetry Full code Admission and Anticipated Discharge Date Admission Date: June 19, 2023 Subjective Pt seen in follow up of preseptal cellulitis, shingles Right face less edematous and erythema also improved No fever, chills, chest pain, shortness of breath No vision changes On admission - in ER it was recommended that patient would be transferred to [place], after discussing with liquefaction plant operator at [facility], and no ophthalmology coverage over the weekend. Patient did not want to be transferred and wanted to be evaluated here on Tuesday by ophthalmology on-call, Dr. Verde. Pt was seen by Dr. Kamara recently. Seen by Dr. Verde yesterday and recommendations reviewed. Pt is overall improving, no new complaints today. Review of Systems Review of Systems: All systems reviewed & are unremarkable except as noted in Subjective Physical Exam Physical Exam: General- WD/WN M in NAD Head- atraumatic. Face: Erythematous changes of whole right face (erythema and edema of R face improved) Eyes- PERRL, right eye lid is swollen and red. red conjunctiva of right eye ENT- oropharynx clear Neck- supple, no JVD, tender right submandibular lymph node. Lungs- clear to auscultation , no wheezing or crackles. Heart- regular rate and rhythm; no murmur, no gallop. Abdomen- normal bowel sounds, soft, nontender, no distension. Extremities- no pretibial edema, no erythema seen. Neuro- alert, oriented x 3; PERRL, right facial droop (chronic); no dysarthria; obeys commands, moves extremities. Results & Data Results & Data Vital Signs (Past 12 Hours) Vital Signs Temp Pulse Pulse Resp BP BP Pulse Ox 06/21/23 12:27 36.6 C 65 19 138/84 96 06/21/23 09:27 59 L 06/21/23 06:59 36.4 C L 56 L 20 166/93 H 96 O2 Del Method 06/21/23 12:27 Room Air 06/21/23 09:27 06/21/23 06:59 Room Air Laboratory Results 06/21/23 06/21/23 Range/Units 04:49 04:49 WBC 7.76 (4.8-10.8) K/ul RBC 4.83 (4.70-6.10) M/uL Hgb 14.9 (14.0-18.0) g/dl Hct 43.1 (42.0-52.0) % MCV 89.2 (80.0-100.0) fL MCH 30.8 (25.0-34.0) pg MCHC 34.6 (32.0-36.0) g/dL RDW Std Deviation 42.3 (36.4-46.3) fL RDW Coeff of Hao 12.9 (11.5-14.5) % Plt Count 195 (130-400) K/uL MPV 9.9 (9.4-12.4) fL Sodium 140 (136-145) mmol/L Potassium 4.0 (3.5-5.1) mmol/L Chloride 107 (98-107) mmol/L Carbon Dioxide 25 (21-32) mmol/L Anion Gap 8 (3-11) BUN 14 (6-23) mg/dl Creatinine 1.02 (0.6-1.4) mg/dl Est Cr Clr Drug Dosing 80.8 ml/min Est GFR ( Amer) 94.1 ml/min Est GFR (Non-Af Amer) 81.2 ml/min BUN/Creatinine Ratio 13.7 (10-20) Glucose 101 H (70-99(Fasting)) mg/dl Calcium 9.2 (8.6-10.3) mg/dl Phosphorus 3.8 D (2.5-4.9) mg/dl Magnesium 2.0 (1.7-2.4) mg/dl Medications Administered Current Inpatient Medications Acetaminophen (Acetaminophen 325 Mg Tab) 650 mg PO Q4H PRN PRN Reason: Pain or Fever Stop: 07/19/23 04:06 Last Admin: 06/20/23 22:00 Dose: 650 mg Piperacillin Sod/Tazobactam (Sod 4.5 gm/ Dextrose) 100 mls @ 25 mls/hr IV Q8H [facility]; Protocol Stop: 06/26/23 05:59 Last Infusion: 06/21/23 10:08 Dose: Infused Vancomycin HCl 750 mg/ Sodium (Chloride) 265 mls @ 200 mls/hr IV Q8H [facility] Stop: 06/26/23 05:59 Last Admin: 06/21/23 13:36 Dose: 200 mls/hr Lisinopril (Lisinopril 20 Mg Tab) 20 mg PO DAILY [facility] Stop: 07/19/23 08:59 Last Admin: 06/21/23 08:50 Dose: 20 mg Melatonin (Melatonin 3 Mg Tab) 3 mg PO HS PRN PRN Reason: Sleep Stop: 07/20/23 22:17 Last Admin: 06/20/23 23:08 Dose: 3 mg Miscellaneous Information (Vancomycin Consult Active) 1 each N/A UD PRN PRN Reason: Consult Stop: 07/18/23 18:22 Nitroglycerin (Nitroglycerin Sl 0.4 Mg/Tab Tab) 0.4 mg SL Q5M PRN PRN Reason: Chest Pain Stop: 07/19/23 04:06 Ofloxacin (Ofloxacin 0.3% 75 Drops/5 Ml Btl) 2 drops OP QID [facility] Stop: 06/29/23 08:59 Last Admin: 06/21/23 13:37 Dose: 2 drops Polyethylene Glycol (Polyethylene (Miralax) 17 Gm Pack) 17 gm PO DAILY PRN PRN Reason: Constipation Stop: 07/19/23 04:06 Pregabalin (Pregabalin 100 Mg Cap) 200 mg PO BID [facility] Stop: 07/19/23 08:59 Last Admin: 06/21/23 08:59 Dose: 200 mg Valacyclovir HCl (Valacyclovir Hcl 500 Mg Tablet) 1,000 mg PO TID [facility] Stop: 06/29/23 08:59 Last Admin: 06/21/23 08:50 Dose: 1,000 mg
[2023-06-21] MEDS: ACETAMINOPHEN 325 MG TAB PO PRN (20:04)
[2023-06-21] MEDS ORDERED: Nursing to Pharmacy Communication SCH (20:30)
[2023-06-21] MEDS ORDERED: MoRPHine SULFATE 4 MG/ML 1 ML CARP\\VIAL IV STA (21:18)
[2023-06-22] MEDS: VANCOMYCIN HCL 750 MG in SODIUM CHLORIDE 0.9% 250 ML IV SCH ×3 (05:12→21:06)
[2023-06-22] MEDS: PIPERACILLIN/TAZOBACTAM 4.5 GM in DEXTROSE 5% MINI-B 100 ML IV SCH ×3 (06:32→20:56)
[2023-06-22 06:43] LABS: Hematocrit (blood only) 43.1 % (42.0-52.0); Hemoglobin 14.8 g/dl (14.0-18.0); Mean Corpuscular Hemoglobin 30.3 pg (25.0-34.0); Mean Corpuscular Hgb Conc 34.3 g/dL (32.0-36.0); Mean Corpuscular Volume 88.1 fL (80.0-100.0); Mean Platelet Volume 9.8 fL (9.4-12.4); Platelet Count 219 K/uL (130-400); RDW Coefficient of Variation 12.8 % (11.5-14.5); RDW Standard Deviation 41.2 fL (36.4-46.3); Red Blood Count 4.89 M/uL (4.70-6.10); White Blood Count 8.33 K/ul (4.8-10.8)
[2023-06-22 07:00] LABS: BUN Creatinine Ratio 13.5 (10-20); Calcium 8.8 mg/dl (8.6-10.3); Creatinine Clr Calc Pharmacy 73.3 ml/min; Est GFR (African American) 91.9 ml/min; Est GFR (Non-African American) 79.3 ml/min; Phosphorus 3.6 mg/dl (2.5-4.9); Potassium 3.8 mmol/L (3.5-5.1)
[2023-06-22] MEDS: OFLOXACIN 0.3% 75 DROPS/5 ML BTL OP SCH ×4 (08:27→21:05)
[2023-06-22] MEDS: lisinopril 20 MG TAB PO SCH (08:27)
[2023-06-22] MEDS: valACYclovir HCL 500 MG TABLET PO SCH ×3 (08:27→21:04)
[2023-06-22] MEDS: PREGABALIN 100 MG CAP PO SCH ×2 (10:24→21:03)
--- NOTE | 2023-06-22 17:40 | Hospitalist Progress Note ---
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 Patient also states his right tear ducts does not work and sometimes gets infection in that eye. Patient states he started having red eyes last Tuesday and got worse on Tuesday Preseptal cellulitis Right facial cellulitis Suspected shingles --Face CT:Right preseptal cellulitis, and associated right scleritis. No abscess. Presumed chronic/postsurgical change of the right mastoids which are diffusely sclerotic. Effusion of the right mastoid tip. --Eye was examined under slit-lamp exam by ER and there was a small ulcer at 6 o'clock position. Pressures were fine. ER talked to the [facility] ophthalmology and discussed the findings and they recommended transfer but patient declined. [facility] ophthalmology recommended ofloxacin drops, Valtrex and IV antibiotics for cellulitis -- Evaluated by ophthalmology on June 20. Advised to continue IV antibiotics and transition to oral antibiotics upon discharge. No signs of orbital extension of cellulitis. Needs follow-up with ophthalmology upon discharge. Plan to continue 10-day course of valacyclovir. Also to continue ofloxacin 4 times a day on the right eye for 7 days. Needs follow-up with ophthalmology upon discharge -- Continue IV vancomycin, Zosyn for now Continue valacyclovir, ofloxacin drops Hypertension Continue home lisinopril DVT Px: SCDs for now Code Status Full code Admission and Anticipated Discharge Date Admission Date: June 19, 2023 Subjective Patient is seen and examined at bedside Right facial edema, pain, erythema slowly improving Denies any visual changes Reports retrobulbar pressure-like sensation Offers no other complaints Review of Systems Review of Systems: All systems reviewed & are unremarkable except as noted in Subjective Physical Exam Physical Exam: Physical Exam: Vitals signs as noted above General Appearance:Moderately built and nourished, no apparent distress Head: normocephalic, Atraumatic, +Chronic facial droop, +Right facial erythema, edema, vesicles Eyes: normal inspection, R eye lid mildly swollen, erythematous conjunctivo- Neck: supple, Trachea midline, + right submandibular lymph node enlargement Respiratory/Chest: Normal breath sounds, CTA, No accessory muscle use Cardiovascular: S1, S2, No murmur Abdomen/GI:Soft, Non tender, Bowel sounds present Extremities/Musculoskeletal:normal inspection, no edema Neurologic/Psych:AAOX3, + chronic right facial droop, otherwise grossly no focal neurological deficits Skin: normal color, warm Results & Data Results & Data Vital Signs (Past 12 Hours) Vital Signs Temp Pulse Pulse Resp BP Pulse Ox O2 Del Method 06/22/23 14:47 100 H 06/22/23 07:10 67 06/22/23 07:23 36.8 C 67 18 144/81 H 97 Room Air Laboratory Results Short CBC 06/22/23 Range/Units 05:59 WBC 8.33 (4.8-10.8) K/ul Hgb 14.8 (14.0-18.0) g/dl Hct 43.1 (42.0-52.0) % Plt Count 219 (130-400) K/uL BMP 06/22/23 05:59 Sodium 138 Potassium 3.8 Chloride 105 Carbon Dioxide 27 BUN 14 Creatinine 1.04 Glucose 95 Calcium 8.8
[2023-06-23] MEDS: VANCOMYCIN HCL 750 MG in SODIUM CHLORIDE 0.9% 250 ML IV SCH ×2 (05:20→14:31)
[2023-06-23] MEDS: PIPERACILLIN/TAZOBACTAM 4.5 GM in DEXTROSE 5% MINI-B 100 ML IV SCH ×2 (05:58→13:38)
[2023-06-23 06:33] LABS: Creatinine Clr Calc Pharmacy 77.8 ml/min; Est GFR (African American) 98.8 ml/min; Est GFR (Non-African American) 85.2 ml/min
[2023-06-23] MEDS: PREGABALIN 100 MG CAP PO SCH ×2 (09:47→20:03)
[2023-06-23] MEDS: OFLOXACIN 0.3% 75 DROPS/5 ML BTL OP SCH ×4 (09:47→20:03)
[2023-06-23] MEDS: valACYclovir HCL 500 MG TABLET PO SCH ×3 (09:49→20:04)
[2023-06-23] MEDS: lisinopril 20 MG TAB PO SCH (09:50)
[2023-06-23] MEDS ORDERED: VANCOMYCIN LEVEL SCH (13:00)
--- NOTE | 2023-06-23 14:00 | Pharmacy Report ---
Pharmacy PK ABX Note - Date of Service June 23, 2023 - Assessment and Plan Assessment 06/23: * Today is day 6 of Vancomycin therapy. Trough vancomycin level obtained today = 10.4 at 13:03. * Patient is also on Zosyn q8h. Renal function stable. 06/20: * Reviewed vancomycin trough, level predicted to achieve a goal AUC/TRINH. Continue current dose. Patient awaiting ophthalmology consult. Serum creatinine stable. No cultures pending at this time. 06/19: * 57 year old M receiving Zosyn, vancomycin, and valacyclovir for treatment of preseptal cellulitis/facial cellulitis/possible Shingles. SCr at/near baseline late yesterday. Next ordered for tomorrow AM Plan Vancomycin * Current regimen: 750 mg IV every 8 hours * Trough level obtained today resulted as 10.4 mcg/mL. This is predicted to achieve target AUC/TRINH of 400-600 mg/L.hr * Predicted AUC at steady state: 434 mg/L.hr * Continue Vancomycin 750 mg IV q8h * Will repeat level in the next 48-72 hours if therapy is continued and/or change in patient clinical status Pharmacy will continue to follow and will adjust dose/frequency as necessary. Thank you. Pharmacy has transitioned to AUC monitoring for vancomycin. AUC/TRINH is the preferred PK/PD target and is associated with decreased risk of nephrotoxicity compared to traditional trough targets.
--- NOTE | 2023-06-23 15:55 | Hospitalist Progress Note ---
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 Patient also states his right tear ducts does not work and sometimes gets infection in that eye. Patient states he started having red eyes last Tuesday and got worse on Tuesday Preseptal cellulitis Right facial cellulitis Suspected shingles --Face CT:Right preseptal cellulitis, and associated right scleritis. No abscess. Presumed chronic/postsurgical change of the right mastoids which are diffusely sclerotic. Effusion of the right mastoid tip. --Eye was examined under slit-lamp exam by ER and there was a small ulcer at 6 o'clock position. Pressures were fine. ER talked to the [facility] ophthalmology and discussed the findings and they recommended transfer but patie nt declined. [facility] ophthalmology recommended ofloxacin drops, Valtrex and IV antibiotics for cellulitis -- Evaluated by ophthalmology on June 20. Advised to continue IV antibiotics and transition to oral antibiotics upon discharge. No signs of orbital extension of cellulitis. Needs follow-up with ophthalmology upon discharge. Plan to continue 10-day course of valacyclovir. Also to continue ofloxacin 4 times a day on the right eye for 7 days. Needs follow-up with ophthalmology upon discharge -- Continue IV vancomycin, Zosyn for now Continue valacyclovir, ofloxacin drops Plan to transition to p.o. antibiotics to complete the course Needs follow-up with ophthalmology upon discharge Hypertension Continue home lisinopril DVT Px: SCDs for now Code Status Full code Disposition Home Admission and Anticipated Discharge Date Admission Date: June 19, 2023 Subjective Patient is seen and examined at bedside Retrobulbar pressure much improved Denies any itching No new complaints Right facial edema, pain, erythema improved Denies any visual changes Also denies any chest pain, dyspnea, dizziness, nausea, vomiting, abdominal pain Review of Systems Review of Systems: All systems reviewed & are unremarkable except as noted in Subjective Physical Exam Physical Exam: Physical Exam: Vitals signs as noted above General Appearance:Moderately built and nourished, no apparent distress Head: normocephalic, Atraumatic, +Chronic facial droop, +Right facial erythema, edema, vesicles Eyes: normal inspection, R eye lid mildly swollen, erythematous conjunctivo- Neck: supple, Trachea midline, + right submandibular lymph node enlargement Respiratory/Chest: Normal breath sounds, CTA, No accessory muscle use Cardiovascular: S1, S2, No murmur Abdomen/GI:Soft, Non tender, Bowel sounds present Extremities/Musculoskeletal:normal inspection, no edema Neurologic/Psych:AAOX3, + chronic right facial droop, otherwise grossly no focal neurological deficits Skin: normal color, warm Results & Data Results & Data Vital Signs (Past 12 Hours) Vital Signs Temp Pulse Pulse Resp BP Pulse Ox O2 Del Method 06/23/23 07:54 36.4 C L 60 18 149/90 H 96 Room Air 06/23/23 07:14 60 Laboratory Results [facility] 06/23/23 05:56 Creatinine 0.98
--- NOTE | 2023-06-23 16:07 | Discharge Summary ---
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 Patient also states his right tear ducts does not work and sometimes gets infection in that eye. Patient states he started having red eyes last Tuesday and got worse on Tuesday. He saw bias cutter helper on and eye was examined and was told eye was fine and was prescribed Augmentin. As the redness spread across the face on the right side went to [facility] ent care and was advised to come to the ER. There is no ophthalmology coverage at [facility] currently so ER physician talked to the [facility] [place] medical support specialist. Ophthalmology recommended to transfer to [place] but patient declined. [facility] ophthalmology recommended ofloxacin eyedrops, Valtrex and antibiotics for cellulitis. Patient currently having headache. Vision is okay. No runny nose. No cough. No fevers. No difficulty swallowing. No chest pain or shortness of breath. No nausea or vomiting. No abdominal pain. Normal bowel and bladder movements. Currently resting comfortably and hemodynamically stable. Past medical history. As mentioned above Past surgical history. Colonoscopy. He had surgery. Excision of recurrent acoustic neuroma in 2010. Excision of sebaceous cyst on left mid back in 2008. Mohs surgery stage II in 2004 on left shoulder. Umbilical hernia repair. Social history. Quit smoking to the nines. Smoked half pack a day for 5 years. Alcohol 3 beers per night. Drug use hemp oil as per [employer]. Family history. Mother had breast cancer. Admission Exam Per Admitting Provider General- Not in distress. Head- atraumatic. Face: Erythematous changes of whole right face. Eyes- PERRL, right eye lid is swollen and red. red conjunctiva of right eye ENT- oropharynx clear Neck- supple, no JVD, tender right submandibular lymph node. Lungs- clear to auscultation , no wheezing or crackles. Heart- regular rate and rhythm; no murmur, no gallop. Abdomen- normal bowel sounds, soft, nontender, no distension. Extremities- no pretibial edema, no erythema seen. Neuro- alert, oriented x 3; PERRL, right facial droop; no dysarthria; obeys commands, moves extremities. Principal Diagnosis Preseptal cellulitis Right facial cellulitis Suspected shingles Discharge Data Allergies Allergy/AdvReac Type Severity Reaction Status Date / Time No Known Allergies Allergy Unverified 06/19/23 00:31 Consultations 06/18/23 23:26 ED Decision to Admit Stat 06/19/23 17:30 Consult Ophthalmology Routine Procedures Performed Laboratory Results WBC 8.33 K/ul (4.8-10.8) 06/22/23 05:59 RBC 4.89 M/uL (4.70-6.10) 06/22/23 05:59 Hgb 14.8 g/dl (14.0-18.0) 06/22/23 05:59 Hct 43.1 % (42.0-52.0) 06/22/23 05:59 MCV 88.1 fL (80.0-100.0) 06/22/23 05:59 MCH 30.3 pg (25.0-34.0) 06/22/23 05:59 MCHC 34.3 g/dL (32.0-36.0) 06/22/23 05:59 RDW Std Deviation 41.2 fL (36.4-46.3) 06/22/23 05:59 RDW Coeff of Hao 12.8 % (11.5-14.5) 06/22/23 05:59 Plt Count 219 K/uL (130-400) 06/22/23 05:59 MPV 9.8 fL (9.4-12.4) 06/22/23 05:59 Immature Gran % (Auto) 0.1 % 06/18/23 18:38 Neut % (Auto) 69.1 % 06/18/23 18:38 Lymph % (Auto) 21.1 % 06/18/23 18:38 [place] % (Auto) 7.2 % 06/18/23 18:38 Eos % (Auto) 1.9 % 06/18/23 18:38 Baso % (Auto) 0.6 % 06/18/23 18:38 Neut # (Auto) 5.53 K/uL (1.40-6.50) 06/18/23 18:38 Lymph # (Auto) 1.69 K/uL (1.20-3.40) 06/18/23 18:38 [place] # (Auto) 0.58 K/uL (0.11-0.59) 06/18/23 18:38 Eos # (Auto) 0.15 K/uL (0.00-0.50) 06/18/23 18:38 Baso # (Auto) 0.05 K/uL (0.00-0.20) 06/18/23 18:38 Immature Gran # (Auto) 0.01 K/uL (0.01-0.20) 06/18/23 18:38 Sodium 138 mmol/L (136-145) 06/22/23 05:59 Potassium 3.8 mmol/L (3.5-5.1) 06/22/23 05:59 Chloride 105 mmol/L (98-107) 06/22/23 05:59 Carbon Dioxide 27 mmol/L (21-32) 06/22/23 05:59 Anion Gap 6 (3-11) 06/22/23 05:59 BUN 14 mg/dl (6-23) 06/22/23 05:59 Creatinine 0.98 mg/dl (0.6-1.4) 06/23/23 05:56 Est Cr Clr Drug Dosing 77.8 ml/min 06/23/23 05:56 Est GFR ( Amer) 98.8 ml/min 06/23/23 05:56 Est GFR (Non-Af Amer) 85.2 ml/min 06/23/23 05:56 BUN/Creatinine Ratio 13.5 (10-20) 06/22/23 05:59 Glucose 95 mg/dl (70-99(Fasting)) 06/22/23 05:59 Calcium 8.8 mg/dl (8.6-10.3) 06/22/23 05:59 Phosphorus 3.6 mg/dl (2.5-4.9) 06/22/23 05:59 Magnesium 2.0 mg/dl (1.7-2.4) 06/22/23 05:59 Random Vancomycin 10.4 mcg/ml (10-20) 06/23/23 13:[address] 06/18/23 18:23 Exam(s): CT FACIAL With Contrast IV Amt: OPTIRAY 320 90ML EXAM: CT Maxillofacial With Intravenous Contrast CLINICAL HISTORY: Reason for exam: ?preseptal cellulitis. TECHNIQUE: Axial computed tomography images of the face with intravenous contrast. CTDI is 72.59 mGy and DLP is 1468.75 mGy-cm. Automated exposure control was utilized for the study. A dose lowering technique was utilized adhering to the principles of ALARA. CONTRAST: Patient received OPTIRAY 320 90ML of IV contrast COMPARISON: No relevant prior studies available. FINDINGS: Bones/joints: Partial right mastoidectomy and severe sclerosis in the remaining mastoid portion, presumed chronic/postsurgical. Mild right mastoid tip effusion. No acute fracture. Soft tissues: Mild to moderate right preseptal cellulitis. No abscess. Orbits: Mild thickening and enhancement right anterior sclera, probable scleritis. No retrobulbar or abscess. Sinuses: Clear. No air-fluid levels. IMPRESSION: 1. Right preseptal cellulitis, and associated right scleritis. 2. No abscess. 3. Presumed chronic/postsurgical change of the right mastoids which are diffusely sclerotic. Effusion of the right mastoid tip. Electronically signed by: Dior Tellez M.D. 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 Patient also states his right tear ducts does not work and sometimes gets infection in that eye. Patient states he started having red eyes last Tuesday and got worse on Tuesday Preseptal cellulitis Right facial cellulitis Suspected shingles --Face CT:Right preseptal cellulitis, and associated right scleritis. No abscess. Presumed chronic/postsurgical change of the right mastoids which are diffusely sclerotic. Effusion of the right mastoid tip. --Eye was examined under slit-lamp exam by ER and there was a small ulcer at 6 o'clock position. Pressures were fine. ER talked to the [facility] ophthalmology and discussed the findings and they recommended transfer but patient declined. [facility] ophthalmology recommended ofloxacin drops, Valtrex and IV antibiotics for cellulitis -- Evaluated by ophthalmology on June 20. Advised to continue IV antibiotics and transition to oral antibiotics upon discharge. No signs of orbital extension of cellulitis. Needs follow-up with ophthalmology upon discharge. Plan to continue 10-day course of valacyclovir. Also to continue ofloxacin 4 times a day on the right eye for 7 days. Needs follow-up with ophthalmology upon discharge -- Continue IV vancomycin, Zosyn for now Continue valacyclovir, ofloxacin drops Plan to transition to p.o. antibiotics to complete the course Needs follow-up with ophthalmology upon discharge Hypertension Continue home lisinopril DVT Px: SCDs for now Code Status Full code Disposition Home Total Time Total Time Spent Total Time Spent (In Minutes): 58 minutes Discharge Plan Discharge Items Patient Disposition: Home - Self-Care Reason For Visit: RIGHT RED EYE AND FACIAL CELLULITIS Discharge Diagnosis: Preseptal cellulitis Right facial cellulitis Suspected shingles Activity: Per Instructions section Exercise/Sports: Wait until after follow-up appointment Non-emergency contact: Primary Care Provider and Section Plotter Operator Call non-emergency contact if: you have any medication questions, your symptoms worsen and you have a fever Follow-up/Referrals: Jorge A Kamara MD [Physician] - 07/01/23 9:30 am Klever De Leon MD [Primary Care Provider] - (Date & Time 06/28/2023 3:20 PM Provider Klever De Leon MD [facility] ) Diet: Heart Healthy Addtl Attending Provider Instructions: Follow-up with your primary care physician on 06/28/2023 3:20 PM Follow-up with your medical support specialist Dr. Kamara on 07/01/2023 at 9:30 AM as scheduled. --- Complete the antibiotic (cefuroxime, doxycycline) and antiviral (valacyclovir) course for 5 more days as prescribed. --Continue ofloxacin drops for 3 more days and stop. Seek immediate medical attention if your symptoms reoccur or worsen Please take all medications as instructed on discharge list below. Please call if you have any questions or problems. You can reach a [facility] hospitalist on duty at [facility] 24 hours a day by calling [phone] Pending Studies at Discharge: No Stand-Alone Forms: My [facility], Smoking Cessation Medications and DC Order Prescriptions: New valacyclovir 1 gram tablet 1,000 mg PO TID 5 Days Qty: 15 0RF ofloxacin [Ocuflox] 0.3 % Drops 2 drp ophthalmic (eye) QID 3 Days Qty: 10 0RF cefdinir 300 mg capsule 300 mg PO BID 5 Days Qty: 10 0RF doxycycline hyclate 100 mg tablet 100 mg PO BID Qty: 10 0RF Continued ibuprofen 200 mg Tablet 400 mg PO Q6H PRN (Reason: Pain) Qty: 0 CBD Oil 0 applic topical DAILY PRN (Reason: Pain) Qty: 0 lisinopril 20 mg tablet 20 mg PO DAILY pregabalin 200 mg capsule 200 mg PO BID Discontinued amoxicillin-pot clavulanate 500-125 mg tablet 1 tab PO BID Rx Instructions: take for 7 days ordered on 06/16/23 Discharge Orders: Discharge Order (Routine); Ordered 06/23/23 Ordered By: Eric Day Admission Data Admit Date/Time: 06/19/23 01:22 Attending Provider: Eric Day Admit Provider: Lucho Herrera Primary Care Provider: Klever De Leon Other Providers: Lucho Herrera; Delmar Mercedes
== END 2023-06-23 20:27 | disposition home or self-care (01) | DRG 603 ==
LOC: ED 16:48 → EDINP 06-19 01:22 → SUATTDRO 06-19 01:22 → 4W 06-19 06:35